=== PATIENT | female | born 1975 | race Caucasian/White ===

== ENCOUNTER 2017-07-22 18:43 | Emergency (ER) | payer OTHER ==
[~2017-07-22] VITALS: Ht 160 cm; Wt 108.9 kg
[2017-07-22] MEDS ORDERED: IV NORMAL SALINE 1,000ML 1,000 ML IV ONE (19:00)
--- NOTE | 2017-07-22 19:17 | RAD ---
CT HEAD WO CONTRAST Clinical indications: SEIZURE TODAY COMPARISON: None available. Technique: Noncontrast axial cross sectional scanning of the head was performed. Findings: No acute intracranial hemorrhage or midline shift or mass-effect or hydrocephalus or extra-axial fluid collection is seen. No focal hypodense area or sulci effacement is seen to indicate an acute infarct or edema radiographically. No skull fracture or pneumocephalus is seen. No opacification of the mastoid sinuses or the paranasal sinuses is seen. The maxillary sinuses are not seen in this study. Impression: No acute intracranial abnormality is seen. PQRS compliance Statement One or more of the following individualized dose reduction techniques were utilized for this study: 1. Automated exposure control 2. Adjustment of the mA and/or kV according to patient size 3. Use of iterative reconstruction technique Electronically signed by: Mukund Cuadra MD (07/22/2017 7:14 PM) [facility] [facility]
[2017-07-22 19:38] LABS: BASO % 1 % (0-3); EOS # 0.1 x10^3/uL (0.0-0.7); EOS % 2 % (0-3); HEMATOCRIT 41.2 % (36.0-47.0); HEMOGLOBIN 14.5 g/dL (12.0-15.5); LYMPH % 37 % (24-48); MEAN CORPUSCULAR HEMOGLOBIN 33 pg (25-35); MEAN CORPUSCULAR HGB CONC 35 g/dL (31-37); MEAN CORPUSCULAR VOLUME 93 fL (79-100); MONO # 0.6 x10^3/uL (0.0-1.1); MONO % 11 % (0-9); NEUT # 2.7 x10^3uL (1.8-7.7); NEUT % 50 % (31-73); PLATELET COUNT 263 x10^3/uL (140-400); RED BLOOD COUNT 4.45 x10^6/uL (3.50-5.40); RED CELL DISTRIBUTION WIDTH 12.6 % (11.5-14.5); WHITE BLOOD COUNT 5.4 x10^3/uL (4.0-11.0)
--- NOTE | 2017-07-22 19:40 | EKG ---
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
--- NOTE | 2017-07-22 19:43 | ED.ADGEN ---
Past History Past Medical History: Seizure, Other Alcohol Use: None Drug Use: Cocaine Adult General HPI HPI Patient is a 41-year-old woman, history of seizure disorder, hypothyroidism, who is on multiple antiepileptic medications, who presents to the emergency department from the correctional facility with report of 2 seizures, and concern for "stopping breathing". Patient didn't require any interventions per staff present with patient. Patient is now awake, alert and oriented 3, is complaining of a headache and some generalized fatigue. No trauma reported, patient was lying down both episodes occurred. Denies any focal weakness, numbness or tingling, any vision changes. 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 She states that when she was transferred to the current correctional facility, she was taken off of her medications, and it took some time for her primary care provider to be able to place her back on her typical medications, she states that she has been taking her full regimen for the past several days but there was a disruption as stated. She denies any ingestions, any drugs, any injuries, any fevers, chills, or other preceding symptoms. She states that she typically has seizures about once every month or 2 months, which is improved from her previous more frequent episodes due to her current medication regimen, she states she has not been receiving medications and the exact times amended by her primary care provider. Review of Systems Review of Systems Constitutional: Denies fever or chills [] Eyes: Denies change in visual acuity, redness, or eye pain [] HENT: Denies nasal congestion or sore throat [] Respiratory: Denies cough or shortness of breath [] Cardiovascular: No additional information not addressed in HPI [] GI: Denies abdominal pain, nausea, vomiting, bloody stools or diarrhea [] : Denies dysuria or hematuria [] Musculoskeletal: Denies back pain or joint pain [] Integument: Denies rash or skin lesions [] Neurologic: Denies headache, focal weakness or sensory changes [] Endocrine: Denies polyuria or polydipsia [] Current Medications Current Medications Current Medications Medications (Trade) Dose Ordered Sig/Carol Start Time Stop Time Status Last Admin Dose Admin Fosphenytoin Sodium 1000 mg/ Sodium Chloride 70 ml @ 280 mls/hr 1X ONCE 07/22/17 21:30 07/22/17 21:44 DC 07/22/17 21:30 280 MLS/HR Ibuprofen (Motrin) 800 mg STK-MED ONCE 07/22/17 22:54 07/22/17 22:55 DC Sodium Chloride 1,000 ml @ 1,000 mls/hr 1X ONCE 07/22/17 19:00 07/22/17 20:00 DC 07/22/17 19:00 1,000 MLS/HR Allergies Allergies Allergies Coded Allergies Type Severity Reaction Last Updated Verified Penicillins Allergy Mild 07/22/17 Yes morphine Allergy Mild Unknown 07/22/17 Yes Physical Exam Physical Exam Constitutional: Well developed, well nourished, no acute distress, non-toxic appearance. [] HENT: Normocephalic, atraumatic, bilateral external ears normal, oropharynx moist, no oral exudates, nose normal. [] Eyes: PERRLA, EOMI, conjunctiva normal, no discharge. [] Neck: Normal range of motion, no tenderness, supple, no stridor. [] Cardiovascular:Heart rate regular rhythm, no murmur , S1, S2, no rubs or gallops.[] Lungs & Thorax: Bilateral breath sounds clear to auscultation, no wheezing, rhonchi, rales. No chest wall crepitus or tenderness. [] Abdomen: Bowel sounds normal, soft, no tenderness, no masses, no pulsatile masses. [] Skin: Warm, dry, no erythema, no rash. [] Back: No tenderness, no CVA tenderness. [] Extremities: Patient with tenderness all patient in a smaller swelling noted throughout the distal and base of the left third digit, patient does have cardinal motions intact, with full range of motion with discomfort. No cyanosis , no clubbing, ROM intact, no edema. [] Neurologic: Alert and oriented X 3, normal motor function, normal sensory function, no focal deficits noted. [] Psychologic: Affect normal, judgement normal, mood normal. [] Current Patient Data Vital Signs Vital Signs Date Time Temp Pulse Resp B/P (MAP) Pulse Ox O2 Delivery O2 Flow Rate FiO2 07/22/17 22:49 67 22 130/74 (92) 99 07/22/17 18:54 98.0 Lab Results Laboratory Tests Test 07/22/17 19:10 07/22/17 19:15 Urine Opiates Screen Neg (NEG) Urine Methadone Screen Neg (NEG) Urine Barbiturates Neg (NEG) Urine Phencyclidine Screen Neg (NEG) Urine Amphetamine/Methamphetamine Neg (NEG) Urine Benzodiazepines Screen Neg (NEG) Urine Cocaine Screen Neg (NEG) Urine Cannabinoids Screen Neg (NEG) Urine Ethyl Alcohol Neg (NEG) White Blood Count 5.4 x10^3/uL (4.0-11.0) Red Blood Count 4.45 x10^6/uL (3.50-5.40) Hemoglobin 14.5 g/dL (12.0-15.5) Hematocrit 41.2 % (36.0-47.0) Mean Corpuscular Volume 93 fL (79-100) Mean Corpuscular Hemoglobin 33 pg (25-35) Mean Corpuscular Hemoglobin Concent 35 g/dL (31-37) Red Cell Distribution Width 12.6 % (11.5-14.5) Platelet Count 263 x10^3/uL (140-400) Neutrophils (%) (Auto) 50 % (31-73) Lymphocytes (%) (Auto) 37 % (24-48) Monocytes (%) (Auto) 11 % (0-9) H Eosinophils (%) (Auto) 2 % (0-3) Basophils (%) (Auto) 1 % (0-3) Neutrophils # (Auto) 2.7 x10^3uL (1.8-7.7) Lymphocytes # (Auto) 2.0 x10^3/uL (1.0-4.8) Monocytes # (Auto) 0.6 x10^3/uL (0.0-1.1) Eosinophils # (Auto) 0.1 x10^3/uL (0.0-0.7) Basophils # (Auto) 0.0 x10^3/uL (0.0-0.2) Sodium Level 140 mmol/L (136-145) Potassium Level 3.7 mmol/L (3.5-5.1) Chloride Level 105 mmol/L (98-107) Carbon Dioxide Level 29 mmol/L (21-32) Anion Gap 6 (6-14) Blood Urea Nitrogen 9 mg/dL (7-20) Creatinine 0.7 mg/dL (0.6-1.0) Estimated GFR (Cockcroft-Gault) 92.7 BUN/Creatinine Ratio 13 (6-20) Glucose Level 90 mg/dL (70-99) Lactic Acid Level 1.1 mmol/L (0.4-2.0) Calcium Level 8.9 mg/dL (8.5-10.1) Magnesium Level 2.0 mg/dL (1.8-2.4) Total Bilirubin 0.2 mg/dL (0.2-1.0) Aspartate Amino Transferase (AST) 17 U/L (15-37) Alanine Aminotransferase (ALT) 24 U/L (14-59) Alkaline Phosphatase 85 U/L (46-116) Troponin I Quantitative < 0.017 ng/mL (0-0.055) Total Protein 7.4 g/dL (6.4-8.2) Albumin 3.5 g/dL (3.4-5.0) Albumin/Globulin Ratio 0.9 (1.0-1.7) L Serum Test, Qualitative Negative (NEG) Phenytoin (Dilantin) Level 4.0 mcg/mL (10.0-20.0) L Phenytoin Last Dose Date 07/22/17 Phenytoin Last Dose Time 0900 EKG EKG EC: Sinus rhythm, heart rate 64 beats/minute, upright axis, QTC of 400, WI 150, QRS of 74, no ST elevations or depressions, no dense of acute ST abnormalities. As interpreted by me.[] Radiology/Procedures Radiology/Procedures [][address] [address] IMAGING REPORT Signed PATIENT: ALDO HERNANDEZ ACCOUNT: [id number] : 1975 LOCATION: ER AGE: 41 SEX: F EXAM STATUS: PRE ER ORD. PHYSICIAN: VISH ROBERTS DO REASON: SONY PROCEDURE: CT HEAD WO CONTRAST CT HEAD WO CONTRAST Clinical indications: SEIZURE TODAY COMPARISON: None available. Technique: Noncontrast axial cross sectional scanning of the head was performed. Findings: No acute intracranial hemorrhage or midline shift or mass-effect or hydrocephalus or extra-axial fluid collection is seen. No focal hypodense area or sulci effacement is seen to indicate an acute infarct or edema radiographically. No skull fracture or pneumocephalus is seen. No opacification of the mastoid sinuses or the paranasal sinuses is seen. The maxillary sinuses are not seen in this study. Impression: No acute intracranial abnormality is seen. PQRS compliance Statement One or more of the following individualized dose reduction techniques were utilized for this study: 1. Automated exposure control 2. Adjustment of the mA and/or kV according to patient size 3. Use of iterative reconstruction technique Electronically signed by: Edgardo Cuadra MD (07/22/2017 7:14 PM) [facility] DICTATED AND SIGNED BY: EDGARDO CUADRA MD DATE: 07/22/171910 CC: VISH ROBERTS DO ~ Impressions: Chest x-ray: One view: Normal cardiopulmonary silhouette, no infiltrates, no effusions, no pneumothorax, no soft tissue or bony abnormalities identified. As interpreted by me. [place] [id number] IMAGING REPORT Signed PATIENT: ALDO HERNANDEZ ACCOUNT: [id number] : 1975 LOCATION: ER AGE: 41 SEX: F EXAM STATUS: PRE ER ORD. PHYSICIAN: VISH ROBERTS DO REASON: SZ PROCEDURE: CT HEAD WO CONTRAST CT HEAD WO CONTRAST Clinical indications: SEIZURE TODAY COMPARISON: None available. Technique: Noncontrast axial cross sectional scanning of the head was performed. Findings: No acute intracranial hemorrhage or midline shift or mass-effect or hydrocephalus or extra-axial fluid collection is seen. No focal hypodense area or sulci effacement is seen to indicate an acute infarct or edema radiographically. No skull fracture or pneumocephalus is seen. No opacification of the mastoid sinuses or the paranasal sinuses is seen. The maxillary sinuses are not seen in this study. Impression: No acute intracranial abnormality is seen. PQRS compliance Statement One or more of the following individualized dose reduction techniques were utilized for this study: 1. Automated exposure control 2. Adjustment of the mA and/or kV according to patient size 3. Use of iterative reconstruction technique Electronically signed by: Edgardo Cuadra MD (07/22/2017 7:14 PM) [facility] [place] DICTATED AND SIGNED BY: EDGARDO CUADRA MD DATE: 07/22/171910 CC: ARMANDOVISH DO ~ Ears: Three-view: Left: Patient with a possible small avulsion fracture on the medial aspect of the base of the third phalanx. No other abnormalities identified. As interpreted by me. Course & Med Decision Making Course & Med Decision Making Pertinent Labs and Imaging studies reviewed. (See chart for details) Patient received CT of the head did not reveal any concerning findings, x-ray of the fingers and chest. Fingers revealed a possible small chip fracture at the base of the third phalanx, patient was placed in a finger splint. No other concerning imaging abnormalities identified, patient was noted to have a subtherapeutic Dilantin level of 4.0. Patient was observed in the emergency department for 3 hours, lactic was normal, other electrolytes and laboratory studies within normal limits. She remained stable, comfortable, without requiring additional intervention. I did discuss findings as above, patient's clinical course, and report of inadvertent medication noncompliance due to patient's incarcerated state with Dr. Kothari of neurology. As patient reports that she is now back on her typical medication regimen, and patient is noted to have a subtherapeutic Dilantin as stated, he recommends loading the patient with Dilantin, continuing her on the medication regimen was previously successful, with plan for the patient be discharged and follow-up with her neurologist. He recommends administering a 10 mg/kg loading dose of Dilantin in the ED IV. I did discuss this with the patient and with the correctional officers present at bedside. Patient is agreeable this plan, as stated she continues to be asymptomatic and comfortable with vital signs within normal limits in the emergency department. Patient was administered Dilantin IV without complication. She was ambulating without difficulty, with vital signs within normal limits, denying all complaints. I did discuss importance of follow -up with her neurologist, and continuation of medications with patient and correctional facility staff. Patient also given contact information for orthopedics for evaluation of her finger. Patient and correctional officers were given clear and detailed return instructions and precautions. Patient and officers voiced understanding and agreement with plan, patient was discharged home with plan to follow-up with her neurologist in the next few days, to return to the emergency department for any concerning symptoms as discussed, and to continue medications as directed. Final Impression Final Impression [] Problems: Dragon Disclaimer Dragon Disclaimer This electronic medical record was generated, in whole or in part, using a voice recognition dictation system. Departure: Impression: Primary Impression: Proximal phalanx fracture of finger Additional Impressions: Seizure Subtherapeutic serum dilantin level Disposition: 01 HOME, SELF-CARE Condition: IMPROVED VISH ROBERTS DO Jul 22, 2017 19:43
[2017-07-22 19:45] LABS: PREG TEST PT QUAL NEGATIVE (NEG)
[2017-07-22 19:46] LABS: BARBITURATES NEG (NEG); BENZODIAZEPINES NEG (NEG); CANNABINOIDS NEG (NEG); COCAINE NEG (NEG); METHADONE NEG (NEG); OPIATES NEG (NEG); PHENCYCLIDINE NEG (NEG)
[2017-07-22 19:47] LABS: AMPHETAMINE/METHAMPHETAMINE NEG (NEG)
[2017-07-22 19:51] LABS: ALBUMIN 3.5 g/dL (3.4-5.0); ALBUMIN/GLOBULIN RATIO 0.9 (1.0-1.7); CALCIUM 8.9 mg/dL (8.5-10.1); CREATININE 0.7 mg/dL (0.6-1.0); GFR 92.7; POTASSIUM 3.7 mmol/L (3.5-5.1); TOTAL BILIRUBIN 0.2 mg/dL (0.2-1.0); TOTAL PROTEIN 7.4 g/dL (6.4-8.2)
[2017-07-22] MEDS ORDERED: FOSPHENYTOIN 1,000 MG in IV NORMAL SALINE 50ML 50 ML IV ONE (21:30)
[2017-07-22] MEDS ORDERED: IBUPROFEN 400 MG TABLET. PO ONE (22:45)
[2017-07-22] MEDS ORDERED: IBUPROFEN 800 MG TABLET. PO ONE ×2 (22:45→22:54)
[2017-07-22 22:49] VITALS: BP 130/74
--- NOTE | 2017-07-23 08:04 | RAD ---
Indication seizure. Protocol study. Suspect aspiration. A single view chest was obtained. No prior imaging of the chest is available. The heart, pulmonary vessels and mediastinum appear normal. The lungs are clear of acute infiltrates. Significant pleural fluid is not seen and there is no pneumothorax. There are occasional calcified granulomas. IMPRESSION: No acute finding in the chest
--- NOTE | 2017-07-23 08:40 | RAD ---
Left middle finger, 3 views, 07/22/2017: History: Pain, injury There is a small calcific density along the lateral aspect of the third MCP joint. It demonstrates sclerotic margins suggesting that this is an old nonunited fracture fragment. No definite acute fracture or dislocation is identified. IMPRESSION: Small cortical fracture along the proximal end of the proximal phalanx, most likely old.
== END 2017-07-22 23:03 | disposition home or self-care (01) ==
LOC: EEVIPCON 18:43 → ER 18:43
DX: G40.909 Epilepsy, unspecified, not intractable, without status epilepticus (principal); S62.613A Displaced fracture of proximal phalanx of left middle finger, initial encounter for closed fracture; R79.1 Abnormal coagulation profile; E03.9 Hypothyroidism, unspecified; Z88.0 Allergy status to penicillin; Z88.5 Allergy status to narcotic agent; X58.XXXA Exposure to other specified factors, initial encounter; Y93.89 Activity, other specified; Y99.8 Other external cause status; Y92.89 Other specified places as the place of occurrence of the external cause
CPT/HCPCS: 29130; 36415; 70450; 71010; 73140; 80053; 80175; 80185; 80307; 83605; 83735; 84484; 84703; 85025; 93005; 96361; 96365; 99285; Q2009; G0479; J7030

== ENCOUNTER 2017-08-06 12:15 | Emergency (ER) | payer OTHER ==
[~2017-08-06] VITALS: Ht 160 cm; Wt 108.9 kg
[2017-08-06 12:20] VITALS: BP 124/64
--- NOTE | 2017-08-06 13:16 | RAD ---
CT head without contrast 08/06/2017 Clinical indication: Worsening headache. Comparison: CT head 07/22/2017 Technique: Multiple CT images of the head were obtained without contrast according to standard protocol. RS Compliance Statement: One or more of the following individualized dose reduction techniques were utilized for this examination: 1. Automated exposure control 2. Adjustment of the mA and/or kV according to patient size 3. Use of iterative reconstruction technique Findings: No acute intracranial hemorrhage or extra-axial fluid collection. The ventricles and subarachnoid spaces are normal in size and configuration for age. No midline shift. The basal cisterns are patent. The jordan-white matter interfaces are maintained. Impression: No acute intracranial hemorrhage. These results were discussed with Dr. Eldridge by telephone at 1:15 PM 08/06/[address] Bryon Maldonado.
[2017-08-06] MEDS ORDERED: LORazepam 2 MG/ML VIAL IV ONE (13:30)
[2017-08-06] MEDS ORDERED: KETOROLAC 30 MG/ML VIAL. IV ONE (13:30)
[2017-08-06 13:31] LABS: BASO % 0 % (0-3); EOS # 0.1 x10^3/uL (0.0-0.7); EOS % 3 % (0-3); HEMATOCRIT 39.9 % (36.0-47.0); HEMOGLOBIN 13.7 g/dL (12.0-15.5); LYMPH # 1.7 x10^3/uL (1.0-4.8); LYMPH % 37 % (24-48); MEAN CORPUSCULAR HEMOGLOBIN 32 pg (25-35); MEAN CORPUSCULAR HGB CONC 34 g/dL (31-37); MEAN CORPUSCULAR VOLUME 93 fL (79-100); MONO # 0.4 x10^3/uL (0.0-1.1); MONO % 9 % (0-9); NEUT # 2.4 x10^3uL (1.8-7.7); NEUT % 52 % (31-73); PLATELET COUNT 256 x10^3/uL (140-400); RED BLOOD COUNT 4.29 x10^6/uL (3.50-5.40); RED CELL DISTRIBUTION WIDTH 12.7 % (11.5-14.5); WHITE BLOOD COUNT 4.6 x10^3/uL (4.0-11.0)
--- NOTE | 2017-08-06 13:36 | RAD ---
CT cervical spine without contrast 08/06/2017 Comparison: None. Clinical indication: Neck pain. Technique: Multiple CT images of the cervical spine were obtained without contrast according to standard protocol PQRS Compliance Statement: One or more of the following individualized dose reduction techniques were utilized for this examination: 1. Automated exposure control 2. Adjustment of the mA and/or kV according to patient size 3. Use of iterative reconstruction technique Findings: No acute cervical spine fracture or traumatic malalignment. There is mild straightening of the cervical spine which may be positional or due to muscle spasm. Atlantoaxial articulation is maintained. Vertebral body heights are maintained. The paraspinal soft tissues are unremarkable. Impression: No acute cervical spine fracture or subluxation.
[2017-08-06 13:44] LABS: ALBUMIN 3.3 g/dL (3.4-5.0); ALBUMIN/GLOBULIN RATIO 0.9 (1.0-1.7); CREATININE 0.7 mg/dL (0.6-1.0); GFR 92.2; MAGNESIUM 1.9 mg/dL (1.8-2.4); TOTAL BILIRUBIN 0.1 mg/dL (0.2-1.0)
--- NOTE | 2017-08-06 13:57 | PHYS DOC ---
Past History Past Medical History: Seizure Past Surgical History: No Surgical History Alcohol Use: Rarely Drug Use: None Adult General Chief Complaint Chief Complaint: SEIZURE HPI HPI Patient is a 42 year old F who presents after having a seizure that lasted approximately 30 seconds. Steff does have a seizure disorder and is having more frequent recurrent episodes of seizures. She has been taking her seizure medication. She states that following the seizure she had more headache and neck pain. She states that she "does not feel normal". She denies any other associated symptoms. She denies any exacerbating or alleviating factors. Review of Systems Review of Systems Constitutional: Denies fever or chills [] Eyes: Denies change in visual acuity, redness, or eye pain [] HENT: Denies nasal congestion or sore throat [] Respiratory: Denies cough or shortness of breath [] Cardiovascular: No additional information not addressed in HPI [] GI: Denies abdominal pain, nausea, vomiting, bloody stools or diarrhea [] : Denies dysuria or hematuria [] Musculoskeletal: Denies joint pain [] Integument: Denies rash or skin lesions [] Neurologic: Denies focal weakness or sensory changes [] Endocrine: Denies polyuria or polydipsia [] All other systems were reviewed and found to be within normal limits, except as documented in this note. Family History Family History Noncontributory Current Medications Current Medications Medications reviewed Current Medications Medications (Trade) Dose Ordered Sig/[facility] Start Time Stop Time Status Last Admin Dose Admin Ketorolac Tromethamine (Toradol) 30 mg 1X ONCE 08/06/17 13:30 08/06/17 13:31 DC 08/06/17 13:30 30 MG Lorazepam (Ativan) 2 mg 1X ONCE 08/06/17 13:30 08/06/17 13:31 DC 08/06/17 13:30 2 MG Allergies Allergies Allergies Coded Allergies Type Severity Reaction Last Updated Verified Penicillins Allergy Mild 07/22/17 Yes morphine Allergy Mild Unknown 07/22/17 Yes Physical Exam Physical Exam Constitutional: Well developed, well nourished, non-toxic appearance. [] Moderate distress HENT: Normocephalic, atraumatic, bilateral external ears normal, oropharynx moist, no oral exudates, nose normal. [] Eyes: PERRLA, EOMI, conjunctiva normal, no discharge. [] Neck: Normal range of motion, no tenderness, supple, no stridor. [] Cardiovascular:Heart rate regular rhythm Lungs & Thorax: Bilateral breath sounds clear to auscultation [] Abdomen: Bowel sounds normal, soft, no tenderness, no masses, no pulsatile masses. [] Skin: Warm, dry, no erythema, no rash. [] Back: No tenderness, no CVA tenderness. [] Extremities: No tenderness, no cyanosis, no clubbing, ROM intact, no edema. [] Neurologic: Alert and oriented X 3, normal motor function, normal sensory function, no focal deficits noted. [] Psychologic: Affect normal, judgement normal, mood normal. [] Current Patient Data Vital Signs Vital Signs Date Time Temp Pulse Resp B/P (MAP) Pulse Ox O2 Delivery O2 Flow Rate FiO2 08/06/17 12:20 98.3 75 20 100 Room Air Lab Results Laboratory Tests Test 08/06/17 13:18 White Blood Count 4.6 x10^3/uL (4.0-11.0) Red Blood Count 4.29 x10^6/uL (3.50-5.40) Hemoglobin 13.7 g/dL (12.0-15.5) Hematocrit 39.9 % (36.0-47.0) Mean Corpuscular Volume 93 fL (79-100) Mean Corpuscular Hemoglobin 32 pg (25-35) Mean Corpuscular Hemoglobin Concent 34 g/dL (31-37) Red Cell Distribution Width 12.7 % (11.5-14.5) Platelet Count 256 x10^3/uL (140-400) Neutrophils (%) (Auto) 52 % (31-73) Lymphocytes (%) (Auto) 37 % (24-48) Monocytes (%) (Auto) 9 % (0-9) Eosinophils (%) (Auto) 3 % (0-3) Basophils (%) (Auto) 0 % (0-3) Neutrophils # (Auto) 2.4 x10^3uL (1.8-7.7) Lymphocytes # (Auto) 1.7 x10^3/uL (1.0-4.8) Monocytes # (Auto) 0.4 x10^3/uL (0.0-1.1) Eosinophils # (Auto) 0.1 x10^3/uL (0.0-0.7) Basophils # (Auto) 0.0 x10^3/uL (0.0-0.2) Sodium Level 140 mmol/L (136-145) Potassium Level 4.0 mmol/L (3.5-5.1) Chloride Level 106 mmol/L (98-107) Carbon Dioxide Level 27 mmol/L (21-32) Anion Gap 7 (6-14) Blood Urea Nitrogen 6 mg/dL (7-20) L Creatinine 0.7 mg/dL (0.6-1.0) Estimated GFR (Cockcroft-Gault) 92.2 BUN/Creatinine Ratio 9 (6-20) Glucose Level 89 mg/dL (70-99) Calcium Level 9.0 mg/dL (8.5-10.1) Magnesium Level 1.9 mg/dL (1.8-2.4) Total Bilirubin 0.1 mg/dL (0.2-1.0) L Aspartate Amino Transferase (AST) 15 U/L (15-37) Alanine Aminotransferase (ALT) 22 U/L (14-59) Alkaline Phosphatase 84 U/L (46-116) Total Protein 7.0 g/dL (6.4-8.2) Albumin 3.3 g/dL (3.4-5.0) L Albumin/Globulin Ratio 0.9 (1.0-1.7) L EKG EKG [] Radiology/Procedures Radiology/Procedures CT head and C-spine Impressions: No acute disease noted per radiology report Course & Med Decision Making Course & Med Decision Making Pertinent Labs and Imaging studies reviewed. (See chart for details) [] Dragon Disclaimer Dragon Disclaimer This electronic medical record was generated, in whole or in part, using a voice recognition dictation system. Departure Departure: Impression: Primary Impression: Seizure Disposition: 01 HOME, SELF-CARE Condition: STABLE Referrals: [facility], [employer]GER (PCP) Patient Instructions: Seizure, Adult Additional Instructions: Steff was seen in the emergency department after a seizure. No emergency medical condition was found on history or physical exam. She did have normal labs and imaging. She was given medication to treat her headache. She was encouraged to follow up with her neurologist as soon as possible for further management of her recurrent seizures. MAYA KOWALSKI MD Aug 06, 2017 13:57
[2017-08-07] MEDS ORDERED: DIVA500T4 PO (00:32)
[2017-08-07] MEDS ORDERED: PHEN100C PO (00:32)
[2017-08-07] MEDS ORDERED: LEVE100020 PO (00:32)
[2017-08-07] MEDS ORDERED: LAMO25TA5 PO (00:32)
== END 2017-08-06 14:02 | disposition home or self-care (01) ==
LOC: ER 12:15
DX: G40.909 Epilepsy, unspecified, not intractable, without status epilepticus (principal); Z88.0 Allergy status to penicillin; Z88.5 Allergy status to narcotic agent
CPT/HCPCS: 36415; 70450; 72125; 80053; 83735; 85025; 96374; 96375; 99285; J1885; J2060

== ENCOUNTER 2017-08-06 21:37 | Emergency (ER) | payer OTHER ==
[~2017-08-06] VITALS: Ht 160 cm; Wt 108.9 kg
[2017-08-07 00:03] LABS: BACTERIA,URINE FEW /HPF (0-FEW); BILIRUBIN,URINE NEG (NEG); CLARITY,URINE CLEAR; COLOR,URINE YELLOW; GLUCOSE,URINE NEG (NEG); NITRITE,URINE NEG (NEG); RBC,URINE 0 /HPF (0-2); SQUAMOUS EPITHELIAL CELL,UR MANY /LPF; UROBILINOGEN,URINE 0.2 mg/dL (0.2 mg/dL); WBC,URINE OCC /HPF (0-4)
[2017-08-07 00:08] LABS: ALBUMIN 3.4 g/dL (3.4-5.0); ALBUMIN/GLOBULIN RATIO 0.9 (1.0-1.7); ALK PHOS 87 U/L (46-116); ALT (SGPT) 25 U/L (14-59); ANION GAP 8 (6-14); AST (SGOT) 14 U/L (15-37); BLOOD UREA NITROGEN 7 mg/dL (7-20); BUN/CREATININE RATIO 10 (6-20); CALCIUM 8.8 mg/dL (8.5-10.1); CARBON DIOXIDE 28 mmol/L (21-32); CHLORIDE 105 mmol/L (98-107); CREATININE 0.7 mg/dL (0.6-1.0); GFR 92.2; GLUCOSE 85 mg/dL (70-99); PHENY 6.2 mcg/mL (10.0-20.0); POTASSIUM 3.7 mmol/L (3.5-5.1); SODIUM 141 mmol/L (136-145); TOTAL BILIRUBIN 0.1 mg/dL (0.2-1.0); TOTAL PROTEIN 7.1 g/dL (6.4-8.2); VAL ACID 36 mcg/mL (50-100)
[2017-08-07] MEDS ORDERED: VALPROIC ACID 250 MG CAPSULE. PO ONE (00:30)
[2017-08-07] MEDS ORDERED: PHENYTOIN SODIUM EXTENDED 100 MG CAPSULE PO ONE (00:30)
[2017-08-07] MEDS ORDERED: DIVA500T4 PO (00:32)
[2017-08-07] MEDS ORDERED: LEVE100020 PO (00:32)
[2017-08-07] MEDS ORDERED: LAMO25TA5 PO (00:32)
[2017-08-07] MEDS ORDERED: PHEN100C PO (00:32)
--- NOTE | 2017-08-07 00:33 | PHYS DOC ---
Past History Past Medical History: Bipolar, Depression Past Surgical History: No Surgical History Alcohol Use: None Drug Use: None Adult General Chief Complaint Chief Complaint: SEIZURE HPI HPI Patient is a [age] year old [sex] who presents with [] Review of Systems Review of Systems Constitutional: Denies fever or chills [] Eyes: Denies change in visual acuity, redness, or eye pain [] HENT: Denies nasal congestion or sore throat [] Respiratory: Denies cough or shortness of breath [] Cardiovascular: No additional information not addressed in HPI [] GI: Denies abdominal pain, nausea, vomiting, bloody stools or diarrhea [] : Denies dysuria or hematuria [] Musculoskeletal: Denies back pain or joint pain [] Integument: Denies rash or skin lesions [] Neurologic: Denies headache, focal weakness or sensory changes [] Endocrine: Denies polyuria or polydipsia [] All other systems were reviewed and found to be within normal limits, except as documented in this note. Current Medications Current Medications Current Medications Medications (Trade) Dose Ordered Sig/Carol Start Time Stop Time Status Last Admin Dose Admin Phenytoin Sodium (Dilantin) 500 mg 1X ONCE 08/07/17 00:30 08/07/17 00:31 Valproic Acid (Depakene) 500 mg 1X ONCE 08/07/17 00:30 08/07/17 00:31 Allergies Allergies Allergies Coded Allergies Type Severity Reaction Last Updated Verified Penicillins Allergy Mild 07/22/17 Yes morphine Allergy Mild Unknown 07/22/17 Yes Physical Exam Physical Exam Constitutional: Well developed, well nourished, no acute distress, non-toxic appearance. [] HENT: Normocephalic, atraumatic, bilateral external ears normal, oropharynx moist, no oral exudates, nose normal. [] Eyes: PERRLA, EOMI, conjunctiva normal, no discharge. [] Neck: Normal range of motion, no tenderness, supple, no stridor. [] Cardiovascular:Heart rate regular rhythm, no murmur [] Lungs & Thorax: Bilateral breath sounds clear to auscultation [] Abdomen: Bowel sounds normal, soft, no tenderness, no masses, no pulsatile masses. [] Skin: Warm, dry, no erythema, no rash. [] Back: No tenderness, no CVA tenderness. [] Extremities: No tenderness, no cyanosis, no clubbing, ROM intact, no edema. [] Neurologic: Alert and oriented X 3, normal motor function, normal sensory function, no focal deficits noted. [] Psychologic: Affect normal, judgement normal, mood normal. [] Current Patient Data Vital Signs Vital Signs Date Time Temp Pulse Resp B/P (MAP) Pulse Ox O2 Delivery O2 Flow Rate FiO2 08/06/17 21:37 98.2 82 14 98 Room Air Lab Results Laboratory Tests Test 08/06/17 23:18 Urine Collection Type Unknown Urine Color Yellow Urine Clarity Clear Urine pH 5.5 Urine Specific [place] 1.025 Urine Protein Trace (NEG-TRACE) Urine Glucose (UA) Neg mg/dL (NEG) Urine Ketones (Stick) 15 mg/dL (NEG) Urine Blood Neg (NEG) Urine Nitrite Neg (NEG) Urine Bilirubin Neg (NEG) Urine Urobilinogen Dipstick 0.2 mg/dL (0.2 mg/dL) Urine Leukocyte Esterase Neg (NEG) Urine RBC 0 /HPF (0-2) Urine WBC Occ /HPF (0-4) Urine Squamous Epithelial Cells Many /LPF Urine Bacteria Few /HPF (0-FEW) Sodium Level 141 mmol/L (136-145) Potassium Level 3.7 mmol/L (3.5-5.1) Chloride Level 105 mmol/L (98-107) Carbon Dioxide Level 28 mmol/L (21-32) Anion Gap 8 (6-14) Blood Urea Nitrogen 7 mg/dL (7-20) Creatinine 0.7 mg/dL (0.6-1.0) Estimated GFR (Cockcroft-Gault) 92.2 BUN/Creatinine Ratio 10 (6-20) Glucose Level 85 mg/dL (70-99) Calcium Level 8.8 mg/dL (8.5-10.1) Total Bilirubin 0.1 mg/dL (0.2-1.0) L Aspartate Amino Transferase (AST) 14 U/L (15-37) L Alanine Aminotransferase (ALT) 25 U/L (14-59) Alkaline Phosphatase 87 U/L (46-116) Total Protein 7.1 g/dL (6.4-8.2) Albumin 3.4 g/dL (3.4-5.0) Albumin/Globulin Ratio 0.9 (1.0-1.7) L Phenytoin (Dilantin) Level 6.2 mcg/mL (10.0-20.0) L Phenytoin Last Dose Date Unknown Phenytoin Last Dose Time Unknown Valproic Acid Level 36 mcg/mL (50-100) L Valproic Acid Last Dose Date Unknown Valproic Acid Last Dose Time Unknown EKG EKG [] Radiology/Procedures Radiology/Procedures [] Course & Med Decision Making Course & Med Decision Making Pertinent Labs and Imaging studies reviewed. (See chart for details) [] Dragon Disclaimer Dragon Disclaimer This electronic medical record was generated, in whole or in part, using a voice recognition dictation system. Departure Departure: Impression: Primary Impression: Subtherapeutic serum dilantin level Additional Impression: Seizure Disposition: HOME, SELF-CARE Condition: IMPROVED Referrals: LUIZ PLAZA MSN, COMPANY TANKER TRUCK DRIVER (PCP) Scripts Lamotrigine (LAMICTAL) 25 Mg Tablet 1 TAB PO BID for 30 Days, #60 TAB 1 Refill Prov: ZAIRA CRUZ MD 08/07/17 Divalproex Sodium (DEPAKOTE ER) 500 Mg Tab.er.24h 1 TAB PO QHS for 30 Days, #30 TAB 0 Refills Prov: ZAIRA CRUZ MD 08/07/17 Levetiracetam (KEPPRA) 1,000 Mg Tablet 1 TAB PO BID for 30 Days, #60 TAB 5 Refills Prov: ZAIRA CRUZ MD 08/07/17 Phenytoin Sodium Extended (DILANTIN) 100 Mg Capsule 300 MG PO HS for 30 Days, #90 CAP Prov: ZAIRA CRUZ MD 08/07/17 Problem Qualifiers ZAIRA CRUZ MD Aug 07, 2017 00:33
[2017-08-07 01:11] VITALS: BP 118/64
== END 2017-08-07 01:11 | disposition home or self-care (01) ==
LOC: ER 21:37
DX: R56.9 Unspecified convulsions (principal); R79.1 Abnormal coagulation profile; F31.9 Bipolar disorder, unspecified; Z88.0 Allergy status to penicillin; Z88.5 Allergy status to narcotic agent
CPT/HCPCS: 36415; 80053; 80164; 80185; 81001; 99284

== ENCOUNTER 2017-08-18 20:36 | Emergency (ER) | payer OTHER ==
[~2017-08-18] VITALS: Ht 160 cm; Wt 108.9 kg
[~2017-08-18 20:36] MED LIST: DIVA500T4 PO; LAMO25TA5 PO; LEVE100020 PO; PHEN100C PO
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
[2017-08-18] MEDS ORDERED: LORazepam 1 MG TABLET PO ONE (21:30)
[2017-08-18] MEDS ORDERED: IV RINGERS SOLUTION,LACTATED 1,000 ML IV ONE (21:30)
[2017-08-18 22:55] LABS: BARBITURATES NEG (NEG); BENZODIAZEPINES NEG (NEG); CANNABINOIDS NEG (NEG); COCAINE NEG (NEG); METHADONE NEG (NEG); OPIATES NEG (NEG); PHENCYCLIDINE NEG (NEG)
[2017-08-18 22:57] LABS: AMPHETAMINE/METHAMPHETAMINE NEG (NEG)
[2017-08-18 23:03] LABS: BACTERIA,URINE FEW /HPF (0-FEW); BILIRUBIN,URINE NEG (NEG); CLARITY,URINE CLEAR; GLUCOSE,URINE NEG (NEG); NITRITE,URINE NEG (NEG); RBC,URINE OCC /HPF (0-2); SQUAMOUS EPITHELIAL CELL,UR FEW /LPF; UROBILINOGEN,URINE 0.2 mg/dL (0.2 mg/dL)
[2017-08-18 23:04] LABS: COLOR,URINE YELLOW
[2017-08-19 00:05] LABS: BASO % 0 % (0-3); EOS # 0.2 x10^3/uL (0.0-0.7); EOS % 3 % (0-3); HEMATOCRIT 36.9 % (36.0-47.0); HEMOGLOBIN 12.8 g/dL (12.0-15.5); LYMPH # 2.5 x10^3/uL (1.0-4.8); LYMPH % 36 % (24-48); MEAN CORPUSCULAR HEMOGLOBIN 32 pg (25-35); MEAN CORPUSCULAR HGB CONC 35 g/dL (31-37); MEAN CORPUSCULAR VOLUME 93 fL (79-100); MONO # 0.6 x10^3/uL (0.0-1.1); MONO % 9 % (0-9); NEUT # 3.6 x10^3uL (1.8-7.7); NEUT % 52 % (31-73); PLATELET COUNT 269 x10^3/uL (140-400); RED BLOOD COUNT 3.95 x10^6/uL (3.50-5.40); RED CELL DISTRIBUTION WIDTH 12.9 % (11.5-14.5)
[2017-08-19] MEDS ORDERED: SMZ/TMP 800/160MG TABLET. PO ONE (00:15)
[2017-08-19 00:17] LABS: PREG TEST PT QUAL NEGATIVE (NEG)
--- NOTE | 2017-08-19 00:27 | EKG ---
[address] [address] Test Date: 2017-08-18 Test Time: 22:23:53 Pat Name: ALDO HERNANDEZ Department: Room: Gender: F Check Embosser: ROMIE : 1975 Requested By: BRYANT GELLER Order Number: [id number] Reading MD: Armaan Funez Measurements Intervals [place] Rate: 78 P: 52 AK: 148 QRS: 52 QRSD: 72 T: 39 QT: 376 QTc: 432 Interpretive Statements SINUS RHYTHM NORMAL ECG Electronically Signed On 08-25-2017 14:30:34 EXECUTIVE MANAGER by Armaan Funez
[2017-08-19 00:29] LABS: VAL ACID 8 mcg/mL (50-100)
[2017-08-19 00:31] LABS: ALBUMIN 3.1 g/dL (3.4-5.0); ALBUMIN/GLOBULIN RATIO 0.8 (1.0-1.7); ALK PHOS 82 U/L (46-116); ALT (SGPT) 52 U/L (14-59); ANION GAP 9 (6-14); AST (SGOT) 32 U/L (15-37); BLOOD UREA NITROGEN 14 mg/dL (7-20); BUN/CREATININE RATIO 20 (6-20); CALCIUM 8.6 mg/dL (8.5-10.1); CARBON DIOXIDE 26 mmol/L (21-32); CHLORIDE 107 mmol/L (98-107); CREATINE KINASE 34 U/L (26-192); CREATININE 0.7 mg/dL (0.6-1.0); GFR 92.2; GLUCOSE 100 mg/dL (70-99); LIPASE 156 U/L (73-393); MAGNESIUM 1.8 mg/dL (1.8-2.4); PHENY 3.5 mcg/mL (10.0-20.0); POTASSIUM 3.6 mmol/L (3.5-5.1); SODIUM 142 mmol/L (136-145); TOTAL BILIRUBIN 0.1 mg/dL (0.2-1.0); TOTAL PROTEIN 6.9 g/dL (6.4-8.2)
[2017-08-19 01:33] VITALS: BP 111/73
[2017-08-19] MEDS ORDERED: DIVA500T2 PO (01:59)
[2017-08-19] MEDS ORDERED: LEVE100020 PO (01:59)
[2017-08-19] MEDS ORDERED: PHEN100C PO (01:59)
[2017-08-19] MEDS ORDERED: SULF1TAB24 PO (02:01)
[2017-08-19] MEDS ORDERED: ONDANSETRON ODT 4 MG TAB.RAPDIS PO ONE (02:15)
[2017-08-19] MEDS ORDERED: PHENYTOIN SODIUM EXTENDED 100 MG CAPSULE PO ONE (02:15)
[2017-08-19] MEDS ORDERED: DIVALPROEX ER 500 MG TAB.ER.24H PO ONE (02:30)
== END 2017-08-19 02:34 | disposition home or self-care (01) ==
LOC: ER 20:36
DX: N39.0 Urinary tract infection, site not specified (principal); Z87.820 Personal history of traumatic brain injury; F31.9 Bipolar disorder, unspecified; R79.1 Abnormal coagulation profile; Z88.0 Allergy status to penicillin; Z88.5 Allergy status to narcotic agent
CPT/HCPCS: 36415; 80053; 80164; 80185; 80307; 81001; 81025; 82553; 83690; 83735; 83880; 84443; 84484; 84703; 85025; 85610; 85730; 87086; 93005; 96360; 96361; 99285; J7120; Q0162; G0479

== ENCOUNTER 2017-08-30 18:27 | Emergency (ER) | payer OTHER ==
[~2017-08-30] VITALS: Ht 160 cm; Wt 108.9 kg
[~2017-08-30 18:27] MED LIST changes: +DIVA500T2 PO; +SULF1TAB24 PO
--- NOTE | 2017-08-30 18:40 | PHYS DOC ---
General Chief Complaint: SEIZURE Stated Complaint: SEIZURES Time Seen by MD: 18:31 Source: patient, EMS Exam Limitations: no limitations Problems: History of Present Illness Initial Comments Patient is a 42-year-old female brought to the ED from the [facility] for breakthrough seizures. Patient takes 5 medications for seizures she just was released from skilled nursing and will be transferred to [facility] tomorrow where she is from. [facility] staff related to EMS that the patient had 5 grand mal seizure over a period of 40 minutes. Patient was brought to the emergency department on arrival vital signs are stable she is alert and oriented 3 denies any headache any pain or other injury. She says that she has to sign for her medications daily so it is documented that she's missed no doses, typically when she becomes ill she will have breakthrough seizures. She says that she's had a sore throat cough and sneezing for several days and strep and influenza have been running through the facility where she resides. She was brought by EMS and on arrival she denies any complaints. Timing/Duration: other Severity: moderate Modifying Factors: improves with medication Associated Symptoms: seizure, other Allergies: Coded Allergies: Penicillins (Verified Allergy, Intermediate, 08/30/17) morphine (Verified Allergy, Intermediate, Unknown, 08/30/17) Past Medical History Medical History: other (bipolar, depression, seizure disorder) Surgical History: noncontributory Social History Smoker: cigarettes Alcohol: none Drugs: none Review of Systems Constitutional: denies chills, denies diaphoresis, denies fever, denies malaise EENTM: denies eye pain, denies ear pain, denies nose pain, nose congestion, throat pain, denies throat swelling, denies mouth swelling Respiratory: cough, denies shortness of breath, denies wheezing Cardiovascular: denies chest pain, denies palpitations, denies syncope Gastrointestinal: denies abdominal pain, denies nausea, denies vomiting Musculoskeletal: denies back pain, denies joint swelling, denies neck pain Psychiatric/Neurological: see HPI Physical Exam General Appearance: no apparent distress, obese Eyes: bilateral eye normal inspection, bilateral eye PERRL, bilateral eye EOMI Ear, Nose, Throat: hearing grossly normal, normal ENT inspection, normal pharynx Neck: non-tender, supple Respiratory: normal breath sounds, no respiratory distress Cardiovascular: normal peripheral pulses, regular rate, rhythm Back: no CVA tenderness, no vertebral tenderness Extremities: normal range of motion, non-tender, normal inspection Neurologic/Psychiatric: design/animation instructor II-XII nml as tested, no motor/sensory deficits, alert, normal mood/affect, oriented x 3 Skin: normal color, warm/dry Orders, Labs, Meds Urine , rapid influenza, and rapid strep negative in the emergency department. EKG: Sinus rhythm normal axis no ST segment elevation interpreted by me. Phenytoin level 4.6, valproic acid 15 both are subtherapeutic Loading doses of phenytoin and valproic acid given in the emergency department. She is instructed to continue her current dosing with close follow-up neurology for further medication titration. Departure Time of Disposition: 21:04 Disposition: HOME, SELF-CARE Diagnosis: subtherapeutic Dilantin and valproic acid, seizure Condition: STABLE Patient Instructions: Seizure, Adult, [id number] Additional Instructions: Discharged home to the [facility]. Rest, no strenuous activity. [id number] Tylenol as needed for discomfort. Continue current medications. Follow-up with neurologist Friday for recheck symptoms and serum medication levels and to discuss titration of medications. Return to ED with new or changing symptoms. MEME AQUINO DO Aug 30, 2017 18:40
--- NOTE | 2017-08-30 18:45 | EKG ---
[address] [address] Test Date: 2017-08-30 Test Time: 18:42:56 Pat Name: ALDO HERNANDEZ Department: Room: Gender: F Process Control Specialist: ROMIE : 1975 Requested By: MEME AQUINO Order Number: [id number] Reading MD: Duglas Guallpa MD Measurements Intervals [place] Rate: 76 P: 49 WI: 152 QRS: 39 QRSD: 72 T: 24 QT: 370 QTc: 420 Interpretive Statements SINUS RHYTHM Electronically Signed On 09-05-2017 14:44:13 CONTINUOUS PILLOWCASE CUTTER by Duglas Guallpa MD
[2017-08-30 19:38] LABS: BASO % 1 % (0-3); EOS # 0.2 x10^3/uL (0.0-0.7); EOS % 3 % (0-3); HEMOGLOBIN 13.5 g/dL (12.0-15.5); LYMPH % 36 % (24-48); MEAN CORPUSCULAR HEMOGLOBIN 32 pg (25-35); MEAN CORPUSCULAR HGB CONC 35 g/dL (31-37); MEAN CORPUSCULAR VOLUME 94 fL (79-100); MONO # 0.5 x10^3/uL (0.0-1.1); MONO % 8 % (0-9); NEUT # 2.9 x10^3uL (1.8-7.7); NEUT % 52 % (31-73); PLATELET COUNT 278 x10^3/uL (140-400); RED BLOOD COUNT 4.17 x10^6/uL (3.50-5.40); RED CELL DISTRIBUTION WIDTH 13.1 % (11.5-14.5); WHITE BLOOD COUNT 5.6 x10^3/uL (4.0-11.0)
[2017-08-30 19:52] LABS: ANION GAP 5 (6-14); BARBITURATES NEG (NEG); BENZODIAZEPINES NEG (NEG); BLOOD UREA NITROGEN 4 mg/dL (7-20); CALCIUM 8.9 mg/dL (8.5-10.1); CANNABINOIDS NEG (NEG); CARBON DIOXIDE 32 mmol/L (21-32); CHLORIDE 106 mmol/L (98-107); COCAINE NEG (NEG); CREATININE 0.7 mg/dL (0.6-1.0); GFR 92.2; GLUCOSE 82 mg/dL (70-99); METHADONE NEG (NEG); OPIATES NEG (NEG); PHENCYCLIDINE NEG (NEG); PHENY 4.6 mcg/mL (10.0-20.0); POTASSIUM 3.5 mmol/L (3.5-5.1); SODIUM 143 mmol/L (136-145); VAL ACID 15 mcg/mL (50-100)
[2017-08-30 19:53] LABS: AMPHETAMINE/METHAMPHETAMINE NEG (NEG)
[2017-08-30 19:55] LABS: BILIRUBIN,URINE NEG (NEG); CLARITY,URINE CLEAR; COLOR,URINE STRAW; GLUCOSE,URINE NEG (NEG)
[2017-08-30 19:56] LABS: BACTERIA,URINE FEW /HPF (0-FEW); NITRITE,URINE NEG (NEG); RBC,URINE 0 /HPF (0-2); SQUAMOUS EPITHELIAL CELL,UR MOD /LPF; UROBILINOGEN,URINE 0.2 mg/dL (0.2 mg/dL); WBC,URINE OCC /HPF (0-4)
[2017-08-30 20:09] LABS: INFLUENZA A PATIENT NEGATIVE (NEGATIVE); INFLUENZA B PATIENT NEGATIVE (NEGATIVE)
[2017-08-30] MEDS ORDERED: PHENYTOIN SODIUM EXTENDED 100 MG CAPSULE PO ONE (20:45)
[2017-08-30] MEDS ORDERED: VALPROIC ACID 250 MG CAPSULE. PO ONE (21:00)
[2017-08-30] MEDS ORDERED: DIVALPROEX SODIUM 125 MG TABLET.DR. PO ONE ×2 (21:01→21:15)
[2017-08-30 21:25] VITALS: BP 135/70
== END 2017-08-30 21:30 | disposition home or self-care (01) ==
LOC: ER 18:27 → EEVIPCON 18:27 → ER 21:30
DX: G40.909 Epilepsy, unspecified, not intractable, without status epilepticus (principal); R79.1 Abnormal coagulation profile; F17.210 Nicotine dependence, cigarettes, uncomplicated; F31.9 Bipolar disorder, unspecified; Z88.0 Allergy status to penicillin; Z88.5 Allergy status to narcotic agent
CPT/HCPCS: 36415; 80048; 80164; 80185; 80307; 81001; 81025; 85025; 87070; 87804; 87880; 93005; 99285-25; G0479

== ENCOUNTER 2017-09-18 06:15 | Inpatient (IN) | payer OTHER ==
[~2017-09-18] VITALS: Ht 160 cm; Wt 116.6 kg
[2017-09-18 06:58] LABS: BASO # 0.1 x10^3/uL (0.0-0.2); BASO % 1 % (0-3); EOS # 0.2 x10^3/uL (0.0-0.7); EOS % 2 % (0-3); HEMATOCRIT 38.4 % (36.0-47.0); HEMOGLOBIN 13.5 g/dL (12.0-15.5); LYMPH # 2.7 x10^3/uL (1.0-4.8); LYMPH % 37 % (24-48); MEAN CORPUSCULAR HEMOGLOBIN 32 pg (25-35); MEAN CORPUSCULAR HGB CONC 35 g/dL (31-37); MEAN CORPUSCULAR VOLUME 92 fL (79-100); MONO # 0.6 x10^3/uL (0.0-1.1); MONO % 8 % (0-9); NEUT # 3.9 x10^3uL (1.8-7.7); NEUT % 52 % (31-73); PLATELET COUNT 307 x10^3/uL (140-400); RED BLOOD COUNT 4.18 x10^6/uL (3.50-5.40); RED CELL DISTRIBUTION WIDTH 13.2 % (11.5-14.5); WHITE BLOOD COUNT 7.5 x10^3/uL (4.0-11.0)
[2017-09-18] MEDS ORDERED: ACETAMINOPHEN 500 MG TABLET PO ONE (07:00)
[2017-09-18 07:11] LABS: CALCIUM 8.8 mg/dL (8.5-10.1); CREATININE 0.9 mg/dL (0.6-1.0); POTASSIUM 3.6 mmol/L (3.5-5.1)
[2017-09-18 07:15] LABS: PHENY 2.4 mcg/mL (10.0-20.0)
[2017-09-18 07:16] LABS: VAL ACID 25 mcg/mL (50-100)
[2017-09-18 07:48] LABS: BACTERIA,URINE FEW /HPF (0-FEW); BILIRUBIN,URINE NEG (NEG); CLARITY,URINE HAZY; COLOR,URINE YELLOW; GLUCOSE,URINE NEG (NEG); NITRITE,URINE NEG (NEG); SQUAMOUS EPITHELIAL CELL,UR FEW /LPF; UROBILINOGEN,URINE 0.2 mg/dL (0.2 mg/dL)
[2017-09-18 07:49] LABS: GRANULAR CASTS,URINE OCC /HPF; HYALINE CASTS, URINE OCC /HPF
[2017-09-18] MEDS ORDERED: VALPROIC ACID 250 MG CAPSULE. PO STA (08:41)
[2017-09-18] MEDS ORDERED: FOSPHENYTOIN 1,000 MG in IV NORMAL SALINE 50ML 50 ML IV ONE (08:45)
--- NOTE | 2017-09-18 08:50 | PHYS DOC ---
Past History Past Medical History: Seizure Past Surgical History: No Surgical History Alcohol Use: None Drug Use: None Adult General Chief Complaint Chief Complaint: SEIZURE HPI HPI Patient is a 42 year old F who presents with seizure just prior to arrival. Steff is had multiple seizures over the past year. She has a known seizure disorder. She was released from nursing home just under 1 year ago and currently resides at the [facility]. Her last seizure was 2 weeks ago. She was out of her medication for 10 days prior to 2 days ago when she restarted her medications. She is been unable to see a neurologist during this time despite multiple recommendations to do so. She is currently fatigued with mild nausea and headache. This is consistent with a postictal phase. She has no other associated symptoms at this time. She has no other exacerbating or alleviating factors this time Review of Systems Review of Systems Constitutional: Denies fever or chills [] Eyes: Denies change in visual acuity, redness, or eye pain [] HENT: Denies nasal congestion or sore throat [] Respiratory: Denies cough or shortness of breath [] Cardiovascular: No additional information not addressed in HPI [] GI: Denies abdominal pain, vomiting, bloody stools or diarrhea [] : Denies dysuria or hematuria [] Musculoskeletal: Denies back pain or joint pain [] Integument: Denies rash or skin lesions [] Neurologic: Denies focal weakness or sensory changes [] Endocrine: Denies polyuria or polydipsia [] All other systems were reviewed and found to be within normal limits, except as documented in this note. Family History Family History No pertinent family medical history reported Current Medications Current Medications Current Medications Medications (Trade) Dose Ordered Sig/Carol Start Time Stop Time Status Last Admin Dose Admin Acetaminophen (Tylenol) 1,000 mg 1X ONCE 09/18/17 07:00 09/18/17 07:02 DC 09/18/17 07:13 1,000 MG Fosphenytoin Sodium 1000 mg/ Sodium Chloride 70 ml @ 280 mls/hr 1X ONCE 09/18/17 08:45 09/18/17 08:59 Valproic Acid (Depakene) 1,000 mg 1X STAT 09/18/17 08:41 09/18/17 08:42 DC Allergies Allergies Allergies Coded Allergies Type Severity Reaction Last Updated Verified Penicillins Allergy Intermediate 08/30/17 Yes morphine Allergy Intermediate Unknown 08/30/17 Yes Physical Exam Physical Exam Constitutional: Well developed, well nourished, no acute distress, non-toxic appearance. [] HENT: Normocephalic, atraumatic, Eyes: PERRLA, EOMI, conjunctiva normal, no discharge. [] Neck: Normal range of motion, no tenderness, supple, no stridor. [] Cardiovascular:Heart rate regular rhythm Lungs & Thorax: Bilateral breath sounds clear to auscultation [] Abdomen: Bowel sounds normal, soft, no tenderness, no masses, no pulsatile masses. [] Skin: Warm, dry, no erythema, no rash. [] Back: No tenderness, no CVA tenderness. [] Extremities: No tenderness, no cyanosis, no clubbing, ROM intact, no edema. [] Neurologic: Alert and oriented X 3, normal motor function, normal sensory function, no focal deficits noted. [] Psychologic: Affect normal, judgement normal, mood normal. [] Current Patient Data Vital Signs Vital Signs Date Time Temp Pulse Resp B/P (MAP) Pulse Ox O2 Delivery O2 Flow Rate FiO2 09/18/17 07:44 75 18 117/82 (94) 09/18/17 06:45 98.8 97 Room Air Lab Results Laboratory Tests Test 09/18/17 06:41 White Blood Count 7.5 x10^3/uL (4.0-11.0) Red Blood Count 4.18 x10^6/uL (3.50-5.40) Hemoglobin 13.5 g/dL (12.0-15.5) Hematocrit 38.4 % (36.0-47.0) Mean Corpuscular Volume 92 fL (79-100) Mean Corpuscular Hemoglobin 32 pg (25-35) Mean Corpuscular Hemoglobin Concent 35 g/dL (31-37) Red Cell Distribution Width 13.2 % (11.5-14.5) Platelet Count 307 x10^3/uL (140-400) Neutrophils (%) (Auto) 52 % (31-73) Lymphocytes (%) (Auto) 37 % (24-48) Monocytes (%) (Auto) 8 % (0-9) Eosinophils (%) (Auto) 2 % (0-3) Basophils (%) (Auto) 1 % (0-3) Neutrophils # (Auto) 3.9 x10^3uL (1.8-7.7) Lymphocytes # (Auto) 2.7 x10^3/uL (1.0-4.8) Monocytes # (Auto) 0.6 x10^3/uL (0.0-1.1) Eosinophils # (Auto) 0.2 x10^3/uL (0.0-0.7) Basophils # (Auto) 0.1 x10^3/uL (0.0-0.2) Urine Collection Type Unknown Urine Color Yellow Urine Clarity Hazy Urine pH 5.5 Urine Specific [place] 1.025 Urine Protein Neg (NEG-TRACE) Urine Glucose (UA) Neg mg/dL (NEG) Urine Ketones (Stick) Trace mg/dL (NEG) Urine Blood Neg (NEG) Urine Nitrite Neg (NEG) Urine Bilirubin Neg (NEG) Urine Urobilinogen Dipstick 0.2 mg/dL (0.2 mg/dL) Urine Leukocyte Esterase Neg (NEG) Urine RBC 1-2 /HPF (0-2) Urine WBC 1-4 /HPF (0-4) Urine Squamous Epithelial Cells Few /LPF Urine Bacteria Few /HPF (0-FEW) Urine Hyaline Casts Occ /HPF Urine Granular Casts Occ /HPF Urine Mucus Slight /LPF Sodium Level 142 mmol/L (136-145) Potassium Level 3.6 mmol/L (3.5-5.1) Chloride Level 108 mmol/L (98-107) H Carbon Dioxide Level 25 mmol/L (21-32) Anion Gap 9 (6-14) Blood Urea Nitrogen 10 mg/dL (7-20) Creatinine 0.9 mg/dL (0.6-1.0) Estimated GFR (Cockcroft-Gault) 69.0 Glucose Level 89 mg/dL (70-99) Calcium Level 8.8 mg/dL (8.5-10.1) Phenytoin (Dilantin) Level 2.4 mcg/mL (10.0-20.0) L Phenytoin Last Dose Date 09/17/17 Phenytoin Last Dose Time 2100 Valproic Acid Level 25 mcg/mL (50-100) L Valproic Acid Last Dose Date 09/17/17 Valproic Acid Last Dose Time 2100 EKG EKG [] Radiology/Procedures Radiology/Procedures [] Course & Med Decision Making Course & Med Decision Making Pertinent Labs and Imaging studies reviewed. (See chart for details) Neurology was contacted by phone. Loading dose of fosphenytoin 1 g IV as well as valproic acid 1 g by mouth was recommended and was given in the emergency room. She is admitted thereafter for neurology consultation. Dragon Disclaimer Dragon Disclaimer This electronic medical record was generated, in whole or in part, using a voice recognition dictation system. Departure Departure: Impression: Primary Impression: Seizure Additional Impression: Subtherapeutic serum dilantin level Disposition: ADMITTED INPATIENT Condition: STABLE Referrals: LUIZ PLAZA MSN, CASE REPAIRER (PCP) Problem Qualifiers MAYA KOWALSKI MD Sep 18, 2017 08:50
[2017-09-18] MEDS ORDERED: IV NORMAL SALINE 50ML 50 ML ONE (08:54)
[2017-09-18] MEDS ORDERED: FOSPHENYTOIN 500 MG/10 ML VIAL IV ONE ×2 (08:55→09:06)
[2017-09-18] MEDS ORDERED: KETOROLAC 30 MG/ML VIAL. IV ONE (09:00)
[2017-09-18 09:58] VITALS: BP 146/83
[2017-09-18] MEDS ORDERED: LAMO25TA PO (11:05)
[2017-09-18] MEDS ORDERED: SERT100T PO (11:05)
[2017-09-18] MEDS ORDERED: LITH150C PO ×2 (11:05)
[2017-09-18] MEDS ORDERED: BUSP10TA PO (11:05)
[2017-09-18] MEDS ORDERED: ACETAMINOPHEN 325 MG TABLET PO PRN (12:30)
[2017-09-18 14:54] VITALS: BP 115/64
[2017-09-18] MEDS ORDERED: IBUPROFEN 600 MG TABLET. PO PRN (15:45)
[2017-09-18] MEDS: diphenhydrAMINE HCL 25 MG CAPSULE PO PRN ×2 (16:37→23:40)
[2017-09-18 19:37] VITALS: BP 117/69
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
[2017-09-18] MEDS ORDERED: levETIRAcetam 500 MG TABLET PO SCH (21:00)
[2017-09-18] MEDS ORDERED: LITHIUM CARBONATE 300 MG TABLET PO SCH (21:00)
[2017-09-18] MEDS ORDERED: PHENYTOIN SODIUM EXTENDED 100 MG CAPSULE PO SCH (21:00)
[2017-09-18] MEDS ORDERED: lamoTRIgine 25 MG TABLET. PO SCH (21:00)
[2017-09-18] MEDS ORDERED: SERTRALINE 100 MG TABLET. PO SCH (21:00)
[2017-09-18] MEDS ORDERED: DIVALPROEX ER 500 MG TAB.ER.24H PO SCH (21:00)
[2017-09-18] MEDS: busPIRone 10 MG TABLET. PO SCH (21:05)
[2017-09-18 23:41] VITALS: BP 127/88
[2017-09-19 05:32] VITALS: BP 150/81
[2017-09-19 06:31] LABS: BASO # 0.1 x10^3/uL (0.0-0.2); BASO % 1 % (0-3); EOS # 0.2 x10^3/uL (0.0-0.7); EOS % 3 % (0-3); HEMATOCRIT 38.5 % (36.0-47.0); HEMOGLOBIN 13.3 g/dL (12.0-15.5); LYMPH # 3.2 x10^3/uL (1.0-4.8); LYMPH % 48 % (24-48); MEAN CORPUSCULAR HEMOGLOBIN 32 pg (25-35); MEAN CORPUSCULAR HGB CONC 35 g/dL (31-37); MEAN CORPUSCULAR VOLUME 93 fL (79-100); MONO # 0.5 x10^3/uL (0.0-1.1); MONO % 8 % (0-9); NEUT # 2.7 x10^3uL (1.8-7.7); NEUT % 41 % (31-73); PLATELET COUNT 316 x10^3/uL (140-400); RED BLOOD COUNT 4.15 x10^6/uL (3.50-5.40); RED CELL DISTRIBUTION WIDTH 13.6 % (11.5-14.5); WHITE BLOOD COUNT 6.7 x10^3/uL (4.0-11.0)
[2017-09-19 06:41] LABS: CALCIUM 8.8 mg/dL (8.5-10.1); CREATININE 0.8 mg/dL (0.6-1.0)
[2017-09-19] MEDS ORDERED: FLU VACC QS2017-18 (36MOS+)/PF 0.5 ML SYRINGE. VAX IM ONE (09:00)
[2017-09-19] MEDS ORDERED: LITHIUM CARBONATE 150 MG CAPSULE. PO SCH (09:00)
[2017-09-19] MEDS: busPIRone 10 MG TABLET. PO SCH ×2 (09:46→14:13)
[2017-09-19 11:15] VITALS: BP 103/64
--- NOTE | 2017-09-19 11:35 | PDOC3 ---
Discharge Summary Visit Information Date of Admission: Sep 18, 2017 Date of Discharge: Sep 19, 2017 Final Diagnosis Problems Medical Problems: (1) Seizure Status: Acute (2) Subtherapeutic serum dilantin level Status: Acute ASSESSMENT: 1. Seizure disorder with recurrent seizures. 2. Subtherapeutic Dilantin level. 3. Subtherapeutic valproic acid level. 4. Right borderline personality disorder. 5. Panic disorder. 6. Anxiety. 7. Posttraumatic stress disorder. Problems: Brief Hospital Course Allergies Allergies Coded Allergies Type Severity Reaction Last Updated Verified Penicillins Allergy Intermediate 08/30/17 Yes morphine Allergy Intermediate Unknown 08/30/17 Yes Vital Signs Vital Signs Date Time Temp Pulse Resp B/P (MAP) Pulse Ox O2 Delivery O2 Flow Rate FiO2 09/19/17 11:15 98.6 72 18 103/64 (77) 96 09/19/17 08:00 Room Air Lab Results Laboratory Tests Test 09/18/17 06:41 09/19/17 05:49 White Blood Count 7.5 x10^3/uL (4.0-11.0) 6.7 x10^3/uL (4.0-11.0) Red Blood Count 4.18 x10^6/uL (3.50-5.40) 4.15 x10^6/uL (3.50-5.40) Hemoglobin 13.5 g/dL (12.0-15.5) 13.3 g/dL (12.0-15.5) Hematocrit 38.4 % (36.0-47.0) 38.5 % (36.0-47.0) Mean Corpuscular Volume 92 fL (79-100) 93 fL (79-100) Mean Corpuscular Hemoglobin 32 pg (25-35) 32 pg (25-35) Mean Corpuscular Hemoglobin Concent 35 g/dL (31-37) 35 g/dL (31-37) Red Cell Distribution Width 13.2 % (11.5-14.5) 13.6 % (11.5-14.5) Platelet Count 307 x10^3/uL (140-400) 316 x10^3/uL (140-400) Neutrophils (%) (Auto) 52 % (31-73) 41 % (31-73) Lymphocytes (%) (Auto) 37 % (24-48) 48 % (24-48) Monocytes (%) (Auto) 8 % (0-9) 8 % (0-9) Eosinophils (%) (Auto) 2 % (0-3) 3 % (0-3) Basophils (%) (Auto) 1 % (0-3) 1 % (0-3) Neutrophils # (Auto) 3.9 x10^3uL (1.8-7.7) 2.7 x10^3uL (1.8-7.7) Lymphocytes # (Auto) 2.7 x10^3/uL (1.0-4.8) 3.2 x10^3/uL (1.0-4.8) Monocytes # (Auto) 0.6 x10^3/uL (0.0-1.1) 0.5 x10^3/uL (0.0-1.1) Eosinophils # (Auto) 0.2 x10^3/uL (0.0-0.7) 0.2 x10^3/uL (0.0-0.7) Basophils # (Auto) 0.1 x10^3/uL (0.0-0.2) 0.1 x10^3/uL (0.0-0.2) Urine Collection Type Unknown Urine Color Yellow Urine Clarity Hazy Urine pH 5.5 Urine Specific [place] 1.025 Urine Protein Neg (NEG-TRACE) Urine Glucose (UA) Neg mg/dL (NEG) Urine Ketones (Stick) Trace mg/dL (NEG) Urine Blood Neg (NEG) Urine Nitrite Neg (NEG) Urine Bilirubin Neg (NEG) Urine Urobilinogen Dipstick 0.2 mg/dL (0.2 mg/dL) Urine Leukocyte Esterase Neg (NEG) Urine RBC 1-2 /HPF (0-2) Urine WBC 1-4 /HPF (0-4) Urine Squamous Epithelial Cells Few /LPF Urine Bacteria Few /HPF (0-FEW) Urine Hyaline Casts Occ /HPF Urine Granular Casts Occ /HPF Urine Mucus Slight /LPF Sodium Level 142 mmol/L (136-145) 142 mmol/L (136-145) Potassium Level 3.6 mmol/L (3.5-5.1) 4.0 mmol/L (3.5-5.1) Chloride Level 108 mmol/L (98-107) 108 mmol/L (98-107) Carbon Dioxide Level 25 mmol/L (21-32) 28 mmol/L (21-32) Anion Gap 9 (6-14) 6 (6-14) Blood Urea Nitrogen 10 mg/dL (7-20) 11 mg/dL (7-20) Creatinine 0.9 mg/dL (0.6-1.0) 0.8 mg/dL (0.6-1.0) Estimated GFR (Cockcroft-Gault) 69.0 79.0 Glucose Level 89 mg/dL (70-99) 98 mg/dL (70-99) Calcium Level 8.8 mg/dL (8.5-10.1) 8.8 mg/dL (8.5-10.1) Phenytoin (Dilantin) Level 2.4 mcg/mL (10.0-20.0) Phenytoin Last Dose Date 09/17/17 Phenytoin Last Dose Time 2100 Valproic Acid (Depakene) Level 25 mcg/mL (50-100) Valproic Acid Last Dose Date 09/17/17 Valproic Acid Last Dose Time 2100 Brief Hospital Course Ms. Domínguez is a 42 old [sex] who presented with RECURRENT SEIZURES AFTER BEING UNABLE TO GET HER MEDICATION AND BEING OUT OF IT FOR 10 DAYS. SHE HAD A SUBTHERAPEUTIC DILANTIN AND VALPROIC ACID LEVEL. SHE WAS SEEN BY DR. SIDDIQUI AND RECIEVED HER MEDICATIONS IN THE HOSPITAL. DID NOT HAVE ANY SEIZURES WHILE HOSPITALIZED. HER EEG WAS PENDING AT THE TIME OF DISCHARGE. ARRANGEMENTS HAVE BEEN MADE FOR HER TO RECIEVE A MONTH OF HER MEDICATIONS VIA A SUPPORT PROGRAM THROUGH [facility]. Discharge Information Condition at Discharge: Improved Disposition/Orders: D/C to Home Dischare Medications Current Medications Acetaminophen (Tylenol) 1,000 mg 1X ONCE PO Last administered on 09/18/17 07 :13; Start 09/18/17 at 07:00; Stop 09/18/17 at 07:02; Status DC Fosphenytoin Sodium 1000 mg/ Sodium Chloride 70 ml @ 280 mls/hr 1X ONCE IV Last administered on 09/18/17 09:04; Start 09/18/17 at 08:45; Stop 09/18/17 at 08:59; Status DC Valproic Acid (Depakene) 1,000 mg 1X STAT PO Last administered on 09/18/17 09:03; Start 09/18/17 at 08:41; Stop 09/18/17 at 08:42; Status DC Ketorolac Tromethamine (Toradol) 30 mg 1X ONCE IV Last administered on 09:04; Start 09/18/17 at 09:00; Stop 09/18/17 at 09:01; Status DC Sodium Chloride 50 ml @ As Directed STK-MED ONCE .ROUTE ; Start 09/18/17 at 08: 54; Stop 09/18/17 at 08:55; Status DC Fosphenytoin Sodium (Cerebyx) 500 mg STK-MED ONCE IV ; Start 09/18/17 at 08:55 ; Stop 09/18/17 at 08:56; Status DC Fosphenytoin Sodium (Cerebyx) 500 mg STK-MED ONCE IV ; Start 09/18/17 at 09:06 ; Stop 09/18/17 at 09:07; Status DC Acetaminophen (Tylenol) 650 mg PRN Q6HRS PRN PO PAIN / TEMP Last administered on 09/18/17 12:39; Start 09/18/17 at 12:30 Buspirone HCl (Buspar) 10 mg TID PO Last administered on 09/19/17 09:46; Start 09/18/17 at 21:00 Lamotrigine (LaMICtal) 50 mg HS PO Last administered on 09/18/17 21:38; Start 09/18/17 at 21:00 Phenytoin Sodium (Dilantin) 300 mg HS PO Last administered on 09/18/17 21:05 ; Start 09/18/17 at 21:00 Sertraline HCl (Zoloft) 200 mg QHS PO Last administered on 09/18/17 21:06; Start 09/18/17 at 21:00 Divalproex Sodium (Depakote Er) 500 mg QHS PO Last administered on 09/18/17 21:06; Start 09/18/17 at 21:00 Levetiracetam (Keppra) 1,000 mg QHS PO Last administered on 09/18/17 21:05; Start 09/18/17 at 21:00 [place] Carbonate 150 mg DAILY PO Last administered on 09/19/17 09:47; Start 09/19/17 at 09:00 [place] Carbonate 300 mg QHS PO Last administered on 09/18/17 21:39; Start 09/18/17 at 21:00 Diphenhydramine HCl (Benadryl) 50 mg PRN Q6HRS PRN PO ITCHING Last administered on 09/18/17 23:40; Start 09/18/17 at 16:15 Ibuprofen (Motrin) 600 mg PRN Q6HRS PRN PO INFLAMMATION; Start 09/18/17 at 15: 45 Influenza Virus Vaccine Quadrival (Fluarix Quad [id number] Syringe) 0.5 ml ONCE ONCE VAX IM ; Start 09/19/17 at 09:00; Stop 09/19/17 at 09:01; Status DC Active Scripts Active Keppra (Levetiracetam) 1,000 Mg Tablet 1,000 Mg PO HS Depakote (Divalproex Sodium) 500 Mg Tablet.dr 500 Mg PO HS Dilantin (Phenytoin Sodium Extended) 100 Mg Capsule 300 Mg PO HS 30 Days Reported Lamotrigine 25 Mg Tablet 2 Tab PO HS [place] Carbonate 150 Mg Capsule 2 Cap PO HS [place] Carbonate 150 Mg Capsule 1 Cap PO DAILY Buspirone Hcl 10 Mg Tablet 1 Tab PO TID Zoloft (Sertraline Hcl) 100 Mg Tablet 2 Tab PO HS Patient Instructions Patient Instuctions SEE INSTRUCTIONS ON JEREMY HILLS DO Sep 19, 2017 11:35
[2017-09-19] MEDS: diphenhydrAMINE HCL 25 MG CAPSULE PO PRN (14:13)
--- NOTE | 2017-09-20 01:46 | PN ---
DATE: SUBJECTIVE: The patient denies any recurrent seizure or any other medical or neurological complaints. OBJECTIVE: GENERAL: Obese female, not in acute distress. VITAL SIGNS: Blood pressure 150/81, respiratory rate 20, pulse is 87 and regular, temperature 98.3, and oxygen saturation 98% on room air. HEENT: Normocephalic, atraumatic, otherwise, unremarkable. NECK: Supple. Negative for carotid bruit, lymphadenopathy or thyromegaly. LUNGS: Clear to A and P. CARDIOVASCULAR: Regular rate and rhythm. Normal S1, S2. There is no S3, S4 or murmur. ABDOMEN: Soft. Bowel sounds positive. EXTREMITIES: Negative for cyanosis, clubbing or pitting edema. NEUROLOGICAL EXAM: Mental Status: The patient is alert and oriented x 3. Speech is fluent. There is no language dysfunction, otherwise, unremarkable. Cranial nerves are intact. No focal motor or sensory deficit. Deep tendon reflexes are symmetric and active without pathologic responses. Gait and coordination were normal. LABORATORY DATA: CBC revealed white blood cells of 6.7 thousand, hemoglobin 13.3, hematocrit 38.5, platelet count 316,000. Chemistry revealed sodium of 142, potassium 4, chloride 108, CO2 28, BUN 11, creatinine 0.8, glucose is 98 and calcium 8.8. IMPRESSION: 1. Breakthrough seizure, probably grand mal type seizure by history, which has been increased in frequency because the patient is not prescribed anticonvulsants. Her neurological examination is unremarkable. The patient has subtherapeutic level of phenytoin and Depakote on the day of admission. She was loaded with Depakote and phenytoin, and resumed taking her daily anticonvulsants. 2. Underlying psychiatric problems include depressions, anxiety, and possible personality disorder. RECOMMENDATIONS: 1. Continue with current management initiated by Dr. Page and anticonvulsant. 2. Await for EEG. M Mildred SIDDIQUI MD DR: RHONDA/lázaro JOB#: [id number] / [id number]
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
== END 2017-09-19 15:00 | disposition home or self-care (01) | DRG 101 ==
LOC: ER 06:15 → 1 SOUTH 09:06 → OBSVTOIN 12:31
PROVIDERS: ADMIT Family Medicine; ATTEND Family Medicine
DX: G40.409 Other generalized epilepsy and epileptic syndromes, not intractable, without status epilepticus (principal); F32.9 Major depressive disorder, single episode, unspecified; Z88.8 Allergy status to other drugs, medicaments and biological substances; F41.0 Panic disorder [episodic paroxysmal anxiety]; F43.10 Post-traumatic stress disorder, unspecified; F60.3 Borderline personality disorder; Z79.899 Other long term (current) drug therapy; Z81.8 Family history of other mental and behavioral disorders; Z88.0 Allergy status to penicillin
CPT/HCPCS: 36415; 80048; 80164; 80185; 81001; 85025; 87641; 90686; 95816; G0378; G0379; J1885; Q0163; Q2009; 99285-25

== ENCOUNTER 2017-10-16 09:14 | Emergency (ER) | payer OTHER ==
[~2017-10-16 09:14] MED LIST changes: +BUSP10TA PO; +LAMO25TA PO; +LITH150C PO; +SERT100T PO
[2017-10-16 10:27] LABS: INFLUENZA A PATIENT NEGATIVE (NEGATIVE); INFLUENZA B PATIENT NEGATIVE (NEGATIVE)
[2017-10-16] MEDS ORDERED: ONDANSETRON ODT 4 MG TAB.RAPDIS PO ONE (10:30)
[2017-10-16] MEDS ORDERED: IBUPROFEN 600 MG TABLET. PO ONE (10:30)
[2017-10-16] MEDS ORDERED: ACETAMINOPHEN 325 MG TABLET PO ONE (10:30)
[2017-10-16] MEDS ORDERED: ONDA4TAB10 SL (10:47)
[2017-10-16] MEDS ORDERED: IBUP600T16 PO (10:47)
--- NOTE | 2017-10-16 10:47 | PHYS DOC ---
Past History Past Medical History: Seizure Past Surgical History: No Surgical History Alcohol Use: None Drug Use: None Adult General Chief Complaint Chief Complaint: FLU SYMPTOM HPI HPI Patient is a 42-year-old female who presents to the ER today secondary to flulike symptoms for approximately 2 weeks. Patient reports that she is currently living in a retirement house with 11 other girls she thinks that she has been getting sick from them. Patient reports 2 weeks ago she had what she describes as a bad flu. Patient reports that she improved significantly and then recently she started getting sick again. Patient complains of cough congestion sore throat lesions in her mouth nausea and decreased by mouth intake. Patient complains of fevers. Patient denies any abdominal pain. Patient denies diarrhea. Patient denies dysuria frequency urgency. Review of Systems Review of Systems Review of systems: Constitutional: Positive for fevers Eyes: Denies change in visual acuity, redness, or eye pain HENT: Positive for nasal congestion and sore throat Respiratory: Positive for cough All other systems were reviewed and found to be within normal limits, except as documented in this note. Physical exam: Constitutional: Well developed, well nourished, no acute distress, non-toxic appearance. HENT: Normocephalic, atraumatic, bilateral external ears normal, nose normal. Small ulcerative lesion on her tongue Eyes: PERRLA, EOMI, conjunctiva normal, no discharge. Neck: Normal range of motion, no tenderness, supple, no stridor. Cardiovascular: Heart rate regular rhythm, Lungs & Thorax: Bilateral breath sounds clear to auscultation Abdomen: No abdominal distention. Skin: Warm, dry, no erythema, no rash. Back: Normal spinal curvature Extremities: No tenderness, no cyanosis, no clubbing, ROM intact, no edema. Neurologic: Alert and oriented X 3, normal motor function, normal sensory function, no focal deficits noted. Psychologic: Affect normal, judgement normal, mood normal. Patient's ER physical exam was most remarkable: Chest x-ray as interpreted by ER physician reveals: Normal heart no infiltrates or effusions Labs reviewed: Negative for influenza and strep Assessment and plan: 1. 42-year-old female who presents here today with viral type symptoms. Patient 's clinically hemodynamically stable. There is no evidence of bacterial infection. No evidence of meningitis. No evidence of abdominal pathology. Patient was given ibuprofen and Zofran here in the ED for her nausea. Patient be discharged home in stable condition ibuprofen and Zofran. Current Medications Current Medications Current Medications Medications (Trade) Dose Ordered Sig/Carol Start Time Stop Time Status Last Admin Dose Admin Acetaminophen (Tylenol) 650 mg 1X ONCE 10/16/17 10:30 10/16/17 10:31 DC 10/16/17 10:19 650 MG Ibuprofen (Motrin) 600 mg 1X ONCE 10/16/17 10:30 10/16/17 10:31 DC 10/16/17 10:19 600 MG Ondansetron HCl (Zofran Odt) 4 mg 1X ONCE 10/16/17 10:30 10/16/17 10:31 DC 10/16/17 10:19 4 MG Allergies Allergies Allergies Coded Allergies Type Severity Reaction Last Updated Verified Penicillins Allergy Intermediate 08/30/17 Yes morphine Allergy Intermediate Unknown 08/30/17 Yes Current Patient Data Lab Results Laboratory Tests Test 10/16/17 09:20 10/16/17 09:30 Group A Streptococcus Rapid Negative (NEGATIVE) Influenza Type A (Rapid) Negative (NEGATIVE) Influenza Type B (Rapid) Negative (NEGATIVE) EKG EKG [] Radiology/Procedures Radiology/Procedures [] Course & Med Decision Making Course & Med Decision Making Pertinent Labs and Imaging studies reviewed. (See chart for details) [] Dragon Disclaimer Dragon Disclaimer This electronic medical record was generated, in whole or in part, using a voice recognition dictation system. Departure Departure: Impression: Primary Impression: Viral illness Additional Impression: Viral respiratory illness Disposition: HOME, SELF-CARE Condition: IMPROVED Referrals: LUIZ PLAZA MSN, INDUSTRIAL THERAPIST (PCP) Patient Instructions: Viral Syndrome Scripts Ibuprofen (IBUPROFEN) 600 Mg Tablet 600 MG PO QID Y for PAIN, #20 Prov: ZAIRA CRUZ MD 10/16/17 Ondansetron (ZOFRAN ODT) 4 Mg Tab.rapdis 1 TAB SL Q8HRS for NAUSEA, #15 TAB Prov: ZAIRA CRUZ MD 10/16/17 Problem Qualifiers ZAIRA CRUZ MD Oct 16, 2017 10:47
[2017-10-16 10:57] VITALS: BP 129/58
--- NOTE | 2017-10-16 11:01 | RAD ---
Single view chest 10/16/2017 Clinical indication: Cough and flulike symptoms. Comparison: Chest 07/22/2017. Findings: Cardiac and mediastinal silhouettes are unremarkable. No pleural effusion, pneumothorax or focal consolidation. Calcified granulomas in the left mid and right lower lung levels. Impression: No acute cardiopulmonary abnormality.
== END 2017-10-16 10:57 | disposition home or self-care (01) ==
LOC: ER 09:14
DX: J06.9 Acute upper respiratory infection, unspecified (principal); B97.89 Other viral agents as the cause of diseases classified elsewhere; Z88.0 Allergy status to penicillin; Z88.5 Allergy status to narcotic agent
CPT/HCPCS: 71045; 87070; 87804; 87880; 99285; Q0162

== ENCOUNTER 2017-10-26 15:24 | Emergency (ER) | payer OTHER ==
[~2017-10-26] VITALS: Ht 160 cm; Wt 114.8 kg
[~2017-10-26 15:24] MED LIST changes: +IBUP600T16 PO; +ONDA4TAB10 SL
[2017-10-26 15:30] VITALS: BP 129/58
--- NOTE | 2017-10-26 15:43 | PHYS DOC ---
Past History Past Medical History: Seizure Past Surgical History: Cholecystectomy Alcohol Use: None Drug Use: None Adult General Chief Complaint Chief Complaint: SEIZURE HPI HPI 42-year-old female patient with history of seizure brought in by EMS because of seizure. Patient states she takes Lamictal, Dilantin, Depakote and Keppra and did not miss her medication. Patient states she had a in her family and was under stress for the last couple days. Patient had a grand mal seizure that lasted for about 2 or 3 minutes that reported by [facility] staff without loss of urine or bowel and biting tongue. Patient states she did not want to come to the hospital but retirement house make her to come to the hospital. Patient denies any focal neuro deficit, fever and chills, nausea and vomiting, headache, . Review of Systems Review of Systems Constitutional: Denies fever or chills [] Eyes: Denies change in visual acuity, redness, or eye pain [] HENT: Denies nasal congestion or sore throat [] Respiratory: Denies cough or shortness of breath [] Cardiovascular: No additional information not addressed in HPI [] GI: Denies abdominal pain, nausea, vomiting, bloody stools or diarrhea [] : Denies dysuria or hematuria [] Musculoskeletal: Denies back pain or joint pain [] Integument: Denies rash or skin lesions [] Neurologic: Denies headache, focal weakness or sensory changes [] Endocrine: Denies polyuria or polydipsia [] All other systems were reviewed and found to be within normal limits, except as documented in this note. Allergies Allergies Allergies Coded Allergies Type Severity Reaction Last Updated Verified Penicillins Allergy Intermediate 08/30/17 Yes morphine Allergy Intermediate Unknown 08/30/17 Yes Physical Exam Physical Exam Constitutional: Well developed, well nourished, mild distress, non-toxic appearance. [] HENT: Normocephalic, atraumatic, bilateral external ears normal, oropharynx moist, no oral exudates, nose normal. [] Eyes: PERRLA, EOMI, conjunctiva normal, no discharge. [] Neck: Normal range of motion, no tenderness, supple, no stridor. [] Cardiovascular:Heart rate regular rhythm, no murmur [] Lungs & Thorax: Bilateral breath sounds clear to auscultation [] Abdomen: Bowel sounds normal, soft, no tenderness, no masses, no pulsatile masses. [] Skin: Warm, dry, no erythema, no rash. [] Back: No tenderness, no CVA tenderness. [] Extremities: No tenderness, no cyanosis, no clubbing, ROM intact, no edema. [] Neurologic: Alert and oriented X 3, normal motor function, normal sensory function, no focal deficits noted. [] Psychologic: Affect normal, judgement normal, mood normal. [] EKG EKG [] Radiology/Procedures Radiology/Procedures [] Course & Med Decision Making Course & Med Decision Making Pertinent Labs reviewed. (See chart for details) Evaluation of patient in ER showed 42-year-old female patient with history of seizure brought in because of another episode of seizure. Patient had low level of Dilantin and Depakote and blood sugar of 55 and treated with oral Depakote and Dilantin and food and felt better. Patient instructed to follow with her primary care physician or neurologist in one day for adjustment of doses of her medication and continue her medication tonight and as instructed. [] Dragon Disclaimer Dragon Disclaimer This electronic medical record was generated, in whole or in part, using a voice recognition dictation system. Departure Departure: Impression: Primary Impression: Seizure Additional Impressions: Subtherapeutic serum dilantin level Hypoglycemia Disposition: 01 HOME, SELF-CARE (At 1800) Condition: IMPROVED Referrals: [facility], [employer] (PCP) Patient Instructions: Hypoglycemia (Low Blood Sugar), Seizure, Adult Additional Instructions: Drink plenty of liquids Follow-up with your primary care physician in 1-2 days for adjustment of dose of your seizure medication Return to ER if not getting better Problem Qualifiers SHAW MANN MD Oct 26, 2017 15:43
[2017-10-26 15:58] LABS: BASO # 0.1 x10^3/uL (0.0-0.2); BASO % 1 % (0-3); EOS # 0.2 x10^3/uL (0.0-0.7); EOS % 3 % (0-3); HEMATOCRIT 39.8 % (36.0-47.0); HEMOGLOBIN 13.6 g/dL (12.0-15.5); LYMPH # 2.1 x10^3/uL (1.0-4.8); LYMPH % 29 % (24-48); MEAN CORPUSCULAR HEMOGLOBIN 32 pg (25-35); MEAN CORPUSCULAR HGB CONC 34 g/dL (31-37); MEAN CORPUSCULAR VOLUME 94 fL (79-100); MONO # 0.6 x10^3/uL (0.0-1.1); MONO % 8 % (0-9); NEUT # 4.2 x10^3uL (1.8-7.7); NEUT % 58 % (31-73); PLATELET COUNT 284 x10^3/uL (140-400); RED BLOOD COUNT 4.23 x10^6/uL (3.50-5.40); RED CELL DISTRIBUTION WIDTH 13.2 % (11.5-14.5); WHITE BLOOD COUNT 7.2 x10^3/uL (4.0-11.0)
[2017-10-26 16:48] LABS: BARBITURATES NEG (NEG); BENZODIAZEPINES NEG (NEG); CANNABINOIDS NEG (NEG); COCAINE NEG (NEG); METHADONE NEG (NEG); OPIATES NEG (NEG); PHENCYCLIDINE NEG (NEG)
[2017-10-26 16:50] LABS: BACTERIA,URINE 0 /HPF (0-FEW); BILIRUBIN,URINE NEG (NEG); CLARITY,URINE CLEAR; COLOR,URINE YELLOW; GLUCOSE,URINE NEG (NEG); NITRITE,URINE NEG (NEG); RBC,URINE 0 /HPF (0-2); SQUAMOUS EPITHELIAL CELL,UR OCC /LPF; UROBILINOGEN,URINE 0.2 mg/dL (0.2 mg/dL); WBC,URINE OCC /HPF (0-4)
[2017-10-26 16:50] LABS: ALBUMIN 3.7 g/dL (3.4-5.0); ALK PHOS 82 U/L (46-116); ALT (SGPT) 27 U/L (14-59); ANION GAP 10 (6-14); AST (SGOT) 19 U/L (15-37); BLOOD UREA NITROGEN 6 mg/dL (7-20); BUN/CREATININE RATIO 8 (6-20); CALCIUM 9.3 mg/dL (8.5-10.1); CARBON DIOXIDE 28 mmol/L (21-32); CHLORIDE 106 mmol/L (98-107); CREATININE 0.8 mg/dL (0.6-1.0); GLUCOSE 55 mg/dL (70-99); PHENY 4.2 mcg/mL (10.0-20.0); POTASSIUM 3.7 mmol/L (3.5-5.1); SODIUM 144 mmol/L (136-145); TOTAL BILIRUBIN 0.1 mg/dL (0.2-1.0); TOTAL PROTEIN 7.3 g/dL (6.4-8.2)
[2017-10-26 16:51] LABS: AMPHETAMINE/METHAMPHETAMINE NEG (NEG)
[2017-10-26 16:52] LABS: VAL ACID 21 mcg/mL (50-100)
[2017-10-26] MEDS ORDERED: VALPROIC ACID 250 MG CAPSULE. PO STA (17:30)
[2017-10-26] MEDS ORDERED: PHENYTOIN SODIUM EXTENDED 100 MG CAPSULE PO ONE (17:30)
[2017-10-26 18:20] LABS: U PREG PATIENT NEGATIVE (NEG)
== END 2017-10-26 18:10 | disposition home or self-care (01) ==
LOC: ER 15:24
DX: G40.89 Other seizures (principal); E16.2 Hypoglycemia, unspecified; R79.1 Abnormal coagulation profile; Z88.0 Allergy status to penicillin; Z88.5 Allergy status to narcotic agent
CPT/HCPCS: 36415; 80053; 80164; 80185; 80307; 81001; 81025; 85025; 99284; G0479

== ENCOUNTER 2017-11-02 20:08 | Emergency (ER) | payer OTHER ==
[~2017-11-02] VITALS: Ht 160 cm; Wt 119.3 kg
[~2017-11-02 20:08] MED LIST changes: -SERT100T PO; +SERT20OR PO
[2017-11-02] MEDS ORDERED: IV NORMAL SALINE 1,000ML 1,000 ML IV ONE ×2 (20:30→21:00)
[2017-11-02 22:02] LABS: CALCIUM 9.1 mg/dL (8.5-10.1); CREATININE 0.8 mg/dL (0.6-1.0); POTASSIUM 3.1 mmol/L (3.5-5.1)
--- NOTE | 2017-11-02 22:34 | PHYS DOC ---
Past History Past Medical History: Seizure Past Surgical History: Cholecystectomy Alcohol Use: None Drug Use: None Adult General Chief Complaint Chief Complaint: SEIZURE HPI HPI 42-year-old female with a history of psychiatric issues and seizure disorder compliant with her Keppra and Dilantin now presents the emergency department after an alleged seizure. Patient alert and communicative with no postictal state upon arrival in the ED. She does have a clearly identifiable contributory component of anxiety. No recent illness or other complaints. Patient states she is under a lot of stress because she lives in a care home Review of Systems Review of Systems Constitutional: Denies fever or chills [] Eyes: Denies change in visual acuity, redness, or eye pain [] HENT: Denies nasal congestion or sore throat [] Respiratory: Denies cough or shortness of breath [] Cardiovascular: No additional information not addressed in HPI [] GI: Denies abdominal pain, nausea, vomiting, bloody stools or diarrhea [] : Denies dysuria or hematuria [] Musculoskeletal: Denies back pain or joint pain [] Integument: Denies rash or skin lesions [] Neurologic: Denies headache, focal weakness or sensory changes [] Endocrine: Denies polyuria or polydipsia [] All other systems were reviewed and found to be within normal limits, except as documented in this note. Current Medications Current Medications Current Medications Medications (Trade) Dose Ordered Sig/Carol Start Time Stop Time Status Last Admin Dose Admin Potassium Chloride (Klor-Con) 40 meq 1X ONCE 11/02/17 22:30 11/02/17 22:31 UNV Sodium Chloride 1,000 ml @ 1,000 mls/hr 1X ONCE 11/02/17 21:00 11/02/17 21:59 DC 11/02/17 21:30 1,000 MLS/HR Allergies Allergies Allergies Coded Allergies Type Severity Reaction Last Updated Verified Penicillins Allergy Intermediate 08/30/17 Yes morphine Allergy Intermediate Unknown 08/30/17 Yes Physical Exam Physical Exam Mildly anxious 42-year-old female. sHe is alert communicative no acute distress. Supple neck clear lungs regular rate and rhythm benign abdomen normal extremities and a nonfocal neurologic exam including extended cranial nerves Constitutional: Well developed, well nourished, no acute distress, non-toxic appearance. [] HENT: Normocephalic, atraumatic, bilateral external ears normal, oropharynx moist, no oral exudates, nose normal. [] Eyes: PERRLA, EOMI, conjunctiva normal, no discharge. [] Neck: Normal range of motion, no tenderness, supple, no stridor. [] Cardiovascular:Heart rate regular rhythm, no murmur [] Lungs & Thorax: Bilateral breath sounds clear to auscultation [] Abdomen: Bowel sounds normal, soft, no tenderness, no masses, no pulsatile masses. [] Skin: Warm, dry, no erythema, no rash. [] Back: No tenderness, no CVA tenderness. [] Extremities: No tenderness, no cyanosis, no clubbing, ROM intact, no edema. [] Neurologic: Alert and oriented X 3, normal motor function, normal sensory function, no focal deficits noted. [] Psychologic: Anxious affect, judgement normal, confrontational mood Current Patient Data Lab Results Laboratory Tests Test 11/02/17 21:25 Sodium Level 140 mmol/L (136-145) Potassium Level 3.1 mmol/L (3.5-5.1) L Chloride Level 103 mmol/L (98-107) Carbon Dioxide Level 28 mmol/L (21-32) Anion Gap 9 (6-14) Blood Urea Nitrogen 5 mg/dL (7-20) L Creatinine 0.8 mg/dL (0.6-1.0) Estimated GFR (Cockcroft-Gault) 79.0 Glucose Level 95 mg/dL (70-99) Calcium Level 9.1 mg/dL (8.5-10.1) EKG EKG [] Radiology/Procedures Radiology/Procedures [] Course & Med Decision Making Course & Med Decision Making Pertinent Labs and Imaging studies reviewed. (See chart for details) Patient with a known history of seizure disorder now status post possible seizure. If the patient did have a seizure this is unremarkable for her. She has no postictal state on arrival in the ED and no seizure during her emergency department care. Patient was hydrated. Basic metabolic panel done with mild hypokalemia at 3.1 supplemented with a single dose of potassium. No further workup or treatment indicated. Patient has Keppra and Dilantin with which she is compliant. Patient agrees with outpatient follow-up. She's awere to follow up with her primary care doctor tomorrow and return immediately for new severe worsening symptoms [] Dragon Disclaimer Dragon Disclaimer This electronic medical record was generated, in whole or in part, using a voice recognition dictation system. Departure Departure: Impression: Primary Impression: Seizure Disposition: 01 HOME, SELF-CARE Condition: GOOD Referrals: [facility], [employer] (PCP) Patient Instructions: Seizure, Adult Additional Instructions: It appears by your description that you may have had a seizure before coming to the hospital. You been stable in the emergency department anywhere hydrated with a liter of normal saline. Your potassium was mildly low at 3.1. Take potassium as prescribed for 5 days. Continue your Keppra and Dilantin as previously prescribed and follow-up with your doctor in the morning. Return immediately for new severe worsening symptoms MAXWELL PERLA MD Nov 02, 2017 22:34
[2017-11-02] MEDS ORDERED: POTASSIUM CHLORIDE 20 MEQ TABLET.ER. PO ONE ×2 (22:45)
[2017-11-02 22:52] VITALS: BP 116/37
== END 2017-11-02 22:52 | disposition home or self-care (01) ==
LOC: ER 20:08
DX: G40.909 Epilepsy, unspecified, not intractable, without status epilepticus (principal); Z88.0 Allergy status to penicillin; Z88.5 Allergy status to narcotic agent
CPT/HCPCS: 36415; 80048; 96360; 99284-25; J7030

== ENCOUNTER 2018-12-22 20:41 | Emergency (ER) | payer OTHER ==
[~2018-12-22] VITALS: Ht 157.5 cm; Wt 99.8 kg
[~2018-12-22 20:41] MED LIST changes: -LAMO25TA PO; +LAMO25TA9 PO; +SERT100T PO; -SERT20OR PO
--- NOTE | 2018-12-22 21:33 | PHYS DOC ---
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 This started yesterday. Patient has recently been exposed to her daughter who has influenza. No blood in stool or emesis. Patient recently checked into a longterm house. Multiple sick people there with coughing issues.[] Review of Systems Review of Systems Constitutional: See history of present illness[] Eyes: Denies change in visual acuity, redness, or eye pain [] HENT: Denies nasal congestion or sore throat [] Respiratory: Denies cough or shortness of breath [] Cardiovascular: Chest pain or palpitations[] GI: See history of present illness[] : Denies dysuria or hematuria [] Musculoskeletal: Denies back pain or joint pain [] Integument: Denies rash or skin lesions [] Neurologic: Denies headache, focal weakness or sensory changes [] Endocrine: Denies polyuria or polydipsia [] All other systems were reviewed and found to be within normal limits, except as documented in this note. Current Medications Current Medications Current Medications Medications (Trade) Dose Ordered Sig/Carol Start Time Stop Time Status Last Admin Dose Admin Ondansetron HCl (Zofran) 8 mg 1X ONCE 12/22/18 22:00 12/22/18 22:01 Sodium Chloride 1,000 ml @ 1,000 mls/hr 1X ONCE 12/22/18 22:00 12/22/18 22:59 Allergies Allergies Allergies Coded Allergies Type Severity Reaction Last Updated Verified Penicillins Allergy Intermediate 08/30/17 Yes morphine Allergy Intermediate Unknown 08/30/17 Yes Physical Exam Physical Exam Constitutional: Well developed, well nourished, no acute distress, non-toxic appearance. [] HENT: Normocephalic, atraumatic, bilateral external ears normal, oropharynx moist, no oral exudates, nose normal. [] Eyes: PERRLA, EOMI, conjunctiva normal, no discharge. [] Neck: Normal range of motion, no tenderness, supple, no stridor. [] Cardiovascular:Heart rate regular rhythm, no murmur [] Lungs & Thorax: Bilateral breath sounds clear to auscultation [] Abdomen: Bowel sounds normal, soft, no tenderness, no masses, no pulsatile masses. [] Skin: Warm, dry, no erythema, no rash. [] Back: No tenderness, no CVA tenderness. [] Extremities: No tenderness, no cyanosis, no clubbing, ROM intact, no edema. [] Neurologic: Alert and oriented X 3, normal motor function, normal sensory function, no focal deficits noted. [] Psychologic: Affect normal, judgement normal, mood normal. [] EKG EKG [] Radiology/Procedures Radiology/Procedures [] Course & Med Decision Making Course & Med Decision Making Pertinent Labs and Imaging studies reviewed. (See chart for details) ED course: Patient arrived, was placed in bed, and started having some vomiting during the history and physical exam. She was given Zofran which transiently improved her nausea and vomiting and subsequently Compazine was administered which controlled her nausea and vomiting. She was given IV fluids and reported feeling much better after the 2 medicines. After the return of the laboratory studies, these were discussed with the patient who voiced understanding. All questions were answered. Medical decision making: Patient does not appear to have intractable nausea and vomiting, no evidence of significant electrolyte abnormality, patient is negative for flu however given her symptomatology and recent exposure to somebody with a confirmed case of influenza, will cover her with Tamiflu.[] Dragon Disclaimer Dragomar Disclaimer This electronic medical record was generated, in whole or in part, using a voice recognition dictation system. Departure Departure: Impression: Primary Impression: Influenza-like illness Additional Impression: Nausea and vomiting Disposition: 01 HOME, SELF-CARE Condition: IMPROVED Referrals: [facility], [facility] (PCP) Follow-up in 2 days Patient Instructions: Influenza, Adult, Nausea and Vomiting Additional Instructions: Your Dilantin level was undetectable. If you're still taking this medication, discuss with your primary care physician or neurologist adjustments to your dosage.Drink plenty of fluids, frequent small sips. No fatty foods, no milk, and no pepper for the next 48 hours. For the next 48 hours eat a diet rich in carbohydrates with foods such as bananas, rice, applesauce, and toast. Follow- up with your regular doctor in 2 days. Return to the ER if unable to tolerate liquids or any other concerns. Scripts Oseltamivir Phosphate (TAMIFLU) 75 Mg Capsule 1 CAP PO BID for influenza exposure, #10 CAP Prov: SANTOS MÁRQUEZ DO 12/22/18 Prochlorperazine Maleate (Compazine) 10 Mg Tablet 10 MG PO QIDPRN PRN for NAUSEA/VOMITING, #30 TAB Prov: SANTOS MÁRQUEZ DO 12/22/18 Problem Qualifiers Additional Impression: Nausea and vomiting Vomiting type: unspecified Vomiting Intractability: non-intractable Qualified Codes: R11.2 - Nausea with vomiting, unspecified SANTOS MÁRQUEZ DO Dec 22, 2018 21:33
[2018-12-22] MEDS ORDERED: IV NORMAL SALINE 1,000ML 1,000 ML IV ONE (22:00)
[2018-12-22] MEDS ORDERED: ONDANSETRON PF 4 MG/2 ML VIAL. IV ONE (22:00)
[2018-12-22] MEDS ORDERED: PROCHLORPERAZINE 10 MG/2 ML VIAL. IV ONE (22:15)
[2018-12-22 22:23] LABS: BASO # 0.1 x10^3/uL (0.0-0.2); BASO % 1 % (0-3); EOS # 0.1 x10^3/uL (0.0-0.7); EOS % 2 % (0-3); HEMATOCRIT 44.6 % (36.0-47.0); HEMOGLOBIN 14.9 g/dL (12.0-15.5); LYMPH # 1.8 x10^3/uL (1.0-4.8); LYMPH % 23 % (24-48); MEAN CORPUSCULAR HEMOGLOBIN 30 pg (25-35); MEAN CORPUSCULAR HGB CONC 33 g/dL (31-37); MEAN CORPUSCULAR VOLUME 91 fL (79-100); MONO # 0.6 x10^3/uL (0.0-1.1); MONO % 7 % (0-9); NEUT # 5.3 x10^3uL (1.8-7.7); NEUT % 67 % (31-73); PLATELET COUNT 361 x10^3/uL (140-400); RED BLOOD COUNT 4.91 x10^6/uL (3.50-5.40); RED CELL DISTRIBUTION WIDTH 13.1 % (11.5-14.5); WHITE BLOOD COUNT 7.9 x10^3/uL (4.0-11.0)
[2018-12-22 22:32] LABS: ALBUMIN 3.9 g/dL (3.4-5.0); ALK PHOS 77 U/L (46-116); ALT (SGPT) 25 U/L (14-59); ANION GAP 11 (6-14); AST (SGOT) 20 U/L (15-37); BLOOD UREA NITROGEN 12 mg/dL (7-20); BUN/CREATININE RATIO 15 (6-20); CALCIUM 9.5 mg/dL (8.5-10.1); CARBON DIOXIDE 26 mmol/L (21-32); CHLORIDE 104 mmol/L (98-107); CREATININE 0.8 mg/dL (0.6-1.0); GFR 78.7; GLUCOSE 93 mg/dL (70-99); LIPASE 119 U/L (73-393); POTASSIUM 3.5 mmol/L (3.5-5.1); SODIUM 141 mmol/L (136-145); TOTAL BILIRUBIN 0.4 mg/dL (0.2-1.0)
[2018-12-22 22:36] LABS: INFLUENZA A PATIENT NEGATIVE (NEGATIVE); INFLUENZA B PATIENT NEGATIVE (NEGATIVE)
[2018-12-22 22:38] LABS: PHENY < 0.5 mcg/mL (10.0-20.0)
[2018-12-22 22:49] LABS: BILIRUBIN,URINE NEG (NEG); CLARITY,URINE HAZY; COLOR,URINE YELLOW; GLUCOSE,URINE NEG (NEG); NITRITE,URINE NEG (NEG); UROBILINOGEN,URINE 0.2 mg/dL (0.2 mg/dL)
[2018-12-22 22:50] LABS: BACTERIA,URINE MOD /HPF (0-FEW); RBC,URINE 0 /HPF (0-2); SQUAMOUS EPITHELIAL CELL,UR OCC /LPF
[2018-12-22 23:02] LABS: U PREG PATIENT NEGATIVE (NEG)
[2018-12-22] MEDS ORDERED: OSEL75CA PO (23:18)
[2018-12-22] MEDS ORDERED: PROC10TA57 PO (23:18)
[2018-12-22 23:31] VITALS: BP 127/91
== END 2018-12-22 23:35 | disposition home or self-care (01) ==
LOC: ER 20:41
DX: J11.1 Influenza due to unidentified influenza virus with other respiratory manifestations (principal); R11.2 Nausea with vomiting, unspecified; Z88.0 Allergy status to penicillin; Z88.5 Allergy status to narcotic agent
CPT/HCPCS: 36415; 80053; 80185; 81001; 81025; 83690; 85025; 87070; 87086; 87804; 87880; 96361; 96374; 96375; 99283; J0780; J2405; J7030

== ENCOUNTER 2019-01-31 17:48 | Emergency (ER) | payer OTHER ==
[~2019-01-31] VITALS: Ht 157.5 cm; Wt 114.8 kg
[~2019-01-31 17:48] MED LIST changes: +OSEL75CA PO; +PROC10TA57 PO
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
[2019-01-31] MEDS ORDERED: IV RINGERS SOLUTION,LACTATED 1,000 ML IV SCH (17:53)
--- NOTE | 2019-01-31 17:59 | EKG ---
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
[2019-01-31] MEDS ORDERED: LORazepam 1 MG TABLET PO ONE (18:00)
[2019-01-31] MEDS ORDERED: ONDANSETRON PF 4 MG/2 ML VIAL. IV ONE (18:00)
[2019-01-31 18:20] LABS: BASO % 0 % (0-3); EOS # 0.1 x10^3/uL (0.0-0.7); EOS % 1 % (0-3); HEMATOCRIT 40.8 % (36.0-47.0); HEMOGLOBIN 13.9 g/dL (12.0-15.5); LYMPH # 2.7 x10^3/uL (1.0-4.8); LYMPH % 31 % (24-48); MEAN CORPUSCULAR HEMOGLOBIN 31 pg (25-35); MEAN CORPUSCULAR HGB CONC 34 g/dL (31-37); MEAN CORPUSCULAR VOLUME 90 fL (79-100); MONO # 0.7 x10^3/uL (0.0-1.1); MONO % 8 % (0-9); NEUT # 5.1 x10^3uL (1.8-7.7); NEUT % 59 % (31-73); PLATELET COUNT 306 x10^3/uL (140-400); RED BLOOD COUNT 4.53 x10^6/uL (3.50-5.40); RED CELL DISTRIBUTION WIDTH 13.1 % (11.5-14.5); WHITE BLOOD COUNT 8.6 x10^3/uL (4.0-11.0)
[2019-01-31] MEDS ORDERED: DIVALPROEX SODIUM 125 MG TABLET.DR. PO ONE (18:30)
[2019-01-31 18:41] LABS: PHENY < 0.5 mcg/mL (10.0-20.0); VAL ACID 4 mcg/mL (50-100)
[2019-01-31 18:45] LABS: ALBUMIN 3.4 g/dL (3.4-5.0); ALK PHOS 75 U/L (46-116); ALT (SGPT) 23 U/L (14-59); AMYLASE 53 U/L (25-115); ANION GAP 7 (6-14); AST (SGOT) 16 U/L (15-37); BLOOD UREA NITROGEN 17 mg/dL (7-20); CALCIUM 9.6 mg/dL (8.5-10.1); CARBON DIOXIDE 28 mmol/L (21-32); CHLORIDE 105 mmol/L (98-107); CREATININE 0.9 mg/dL (0.6-1.0); DIRECT BILIRUBIN < 0.1 mg/dL (0.0-0.2); GFR 68.7; GLUCOSE 81 mg/dL (70-99); LIPASE 143 U/L (73-393); MAGNESIUM 1.9 mg/dL (1.8-2.4); SODIUM 140 mmol/L (136-145); TOTAL BILIRUBIN 0.2 mg/dL (0.2-1.0); TOTAL PROTEIN 7.4 g/dL (6.4-8.2)
--- NOTE | 2019-01-31 18:45 | RAD ---
CT HEAD WO CONTRAST Indication: Seizure. Exposure: One or more of the following individualized dose reduction techniques were utilized for this examination: 1. Automated exposure control 2. Adjustment of the mA and/or kV according to patient size 3. Use of iterative reconstruction technique. Technique: Standard imaging without intravenous contrast. Comparison with 08/06/2017. The posterior fossa is unremarkable. No evidence of acute intracranial hemorrhage, mass effect, Midline shift or abnormal extra-axial fluid collection. Streeter-white matter distinction is maintained. Ventricles and sulci are symmetric. No notable scalp swelling. No acute skull abnormality. Partially visualized sinuses are clear. IMPRESSION: No evidence of acute intracranial hemorrhage or mass effect. Consider outpatient MRI for further evaluation. Electronically signed by: lCaudy Orozco MD (01/31/2019 6:42 PM) [facility]
[2019-01-31 18:53] LABS: BARBITURATES NEG (NEG); BENZODIAZEPINES NEG (NEG); CANNABINOIDS NEG (NEG); COCAINE NEG (NEG); METHADONE NEG (NEG); OPIATES NEG (NEG); PHENCYCLIDINE NEG (NEG)
[2019-01-31 18:54] LABS: AMPHETAMINE/METHAMPHETAMINE NEG (NEG)
[2019-01-31 19:10] LABS: BILIRUBIN,URINE NEG (NEG); CLARITY,URINE CLEAR; COLOR,URINE YELLOW; GLUCOSE,URINE NEG (NEG)
[2019-01-31 19:11] LABS: BACTERIA,URINE 0 /HPF (0-FEW); NITRITE,URINE NEG (NEG); RBC,URINE OCC /HPF (0-2); SQUAMOUS EPITHELIAL CELL,UR MOD /LPF; UROBILINOGEN,URINE 0.2 mg/dL (0.2 mg/dL); WBC,URINE RARE /HPF (0-4)
[2019-01-31] MEDS ORDERED: levETIRAcetam 500 MG TABLET PO STA (19:18)
[2019-01-31] MEDS ORDERED: PHENYTOIN SODIUM EXTENDED 100 MG CAPSULE PO ONE (19:30)
[2019-01-31 19:32] LABS: SEDIMENTATION RATE 17 (0-25)
[2019-01-31 19:45] VITALS: BP 107/63
--- NOTE | 2019-01-31 19:58 | RAD ---
CHEST PA LATERAL History: Seizure.. Heart size is not enlarged. No evidence of pneumothorax. No pleural effusion. No consolidating infiltrate. Bones appear intact. IMPRESSION: No evidence of consolidating infiltrate. Electronically signed by: Claudy Orozco MD (01/31/2019 7:55 PM) [facility]
[2019-02-01] MEDS ORDERED: BUTA1TAB23 PO (22:56)
[2019-02-01] MEDS ORDERED: ONDA4TAB12 PO (22:56)
== END 2019-01-31 20:07 | disposition home or self-care (01) ==
LOC: ER 17:48
DX: S62.501A Fracture of unspecified phalanx of right thumb, initial encounter for closed fracture (principal); G40.89 Other seizures; R11.2 Nausea with vomiting, unspecified; F41.9 Anxiety disorder, unspecified; F32.9 Major depressive disorder, single episode, unspecified; G43.909 Migraine, unspecified, not intractable, without status migrainosus; R89.2 Abnormal level of other drugs, medicaments and biological substances in specimens from other organs, systems and tissues; Z88.0 Allergy status to penicillin; Z88.5 Allergy status to narcotic agent; X58.XXXA Exposure to other specified factors, initial encounter; Y93.89 Activity, other specified; Y92.89 Other specified places as the place of occurrence of the external cause; Y99.0 Civilian activity done for income or pay
CPT/HCPCS: 36415; 70450; 71046; 80048; 80076; 80164; 80178; 80185; 80307; 81001; 81025; 82150; 82550; 83690; 83735; 83880; 84443; 84484; 85025; 85379; 85610; 85651; 85730; 93005; 96361; 96374; 99285; G0480; J2405; J7120; 80177

== ENCOUNTER 2019-02-01 21:26 | Emergency (ER) | payer OTHER ==
[~2019-02-01] VITALS: Ht 157.5 cm; Wt 114.8 kg
[2019-02-01 21:43] VITALS: BP 111/64
[2019-02-01] MEDS ORDERED: METOCLOPRAMIDE HCL 10 MG/2 ML VIAL. IV ONE (21:45)
[2019-02-01] MEDS ORDERED: KETOROLAC 15 MG/ML VIAL. IV ONE (21:45)
[2019-02-01] MEDS ORDERED: IV NORMAL SALINE 1,000ML 1,000 ML IV ONE (21:45)
[2019-02-01] MEDS ORDERED: diphenhydrAMINE 50 MG/ML VIAL IVP ONE (21:45)
[2019-02-01] MEDS ORDERED: DEXAMETHASONE SOD PHOS 10 MG/ML VIAL IV ONE (21:45)
[2019-02-01] MEDS ORDERED: BUTA1TAB23 PO (22:56)
[2019-02-01] MEDS ORDERED: ONDA4TAB12 PO (22:56)
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
== END 2019-02-01 23:00 | disposition home or self-care (01) ==
LOC: ER 21:30
DX: R51 Headache (principal); R11.2 Nausea with vomiting, unspecified; R10.9 Unspecified abdominal pain; G43.909 Migraine, unspecified, not intractable, without status migrainosus; Z90.49 Acquired absence of other specified parts of digestive tract; Z88.0 Allergy status to penicillin; Z88.5 Allergy status to narcotic agent
CPT/HCPCS: 96361; 96374; 96375; 99284; J1100; J1200; J1885; J2765; J7030

== ENCOUNTER 2021-11-03 21:30 | Emergency (ER) | payer SELFPAY ==
[~2021-11-03] VITALS: Ht 157.5 cm; Wt 118.1 kg
[~2021-11-03 21:30] MED LIST changes: +BUTA1TAB23 PO; +ONDA4TAB12 PO
--- NOTE | 2021-11-03 21:34 | PHYS DOC ---
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 States spouse was exposed to COVID little over a week ago. States she is not vaccinated for COVID. Denies any fevers, chest pain, shortness of breath, nausea, vomiting, diarrhea. Denies any dysuria, hematuria. States he is eating and drinking normally for her. States he is making urine and stool normally for her. States she took some Tylenol earlier in the day. Review of Systems Review of Systems Review of systems otherwise unremarkable except noted in HPI Allergies Allergies Allergies Coded Allergies Type Severity Reaction Last Updated Verified Penicillins Allergy Intermediate 08/30/17 Yes morphine Allergy Intermediate Unknown 08/30/17 Yes Physical Exam Physical Exam Constitutional: Well developed, well nourished, no acute distress, non-toxic appearance. [] HENT: Normocephalic, atraumatic, oropharynx moist, no oral exudates, nose normal. [] Eyes:conjunctiva normal, no discharge. [] Neck: Normal range of motion, no tenderness, supple, no stridor. [] Cardiovascular:Heart rate regular rhythm, no murmur [] Lungs & Thorax: Bilateral breath sounds clear to auscultation [] Abdomen: no tenderness, Skin: Warm, dry, no erythema, no rash. [] Extremities: No tenderness, no cyanosis, no clubbing, ROM intact, no edema. [] Neurologic: Alert and oriented X 3, no focal deficits noted. [] Psychologic: Affect normal, judgement normal, mood normal. [] EKG EKG [] Radiology/Procedures Radiology/Procedures [] Heart Score C/O Chest Pain: No Risk Factors: Risk Factors: DM, Current or recent (<one month) smoker, HTN, HLP, family history of CAD, obesity. Risk Scores: Risk Factors: DM, Current or recent (<one month) smoker, HTN, HLP, family history of CAD, obesity. Course & Med Decision Making Course & Med Decision Making Patient is a 46-year-old female presents with body aches, chills and fatigue Vital signs not concerning. Physical exam noted above. Given Tylenol, ibuprofen and Benadryl COVID swab pending. Discussed symptom treatment at home. Given community resource packet with local [facility] clinics and advised to follow-up on Friday. Discussed COVID quarantine and education. Gave return precautions to the ED. Patient grateful, verbalized understanding and agreed with plan of discharge. [] Dragon Disclaimer Dragon Disclaimer This electronic medical record was generated, in whole or in part, using a voice recognition dictation system. Departure Departure: Impression: Primary Impression: Viral syndrome Disposition: HOME / SELF CARE / HOMELESS Condition: GOOD Referrals: PCP,PHILIPP (PCP) ROSSY CUELLAR Patient Instructions: Viral Syndrome Additional Instructions: You have been tested for or diagnosed with COVID-19. It is an infection caused by a new type of coronavirus. COVID-19 will cause cold-like or mild flu symptoms in most. It can cause more severe symptoms like problems breathing in some. There is no treatment for COVID-19. The body will clear the infection over time. Self-care will help to ease discomfort. Steps to Take: Self-Care Rest as needed. Healthy habits may help you feel better. Steps include: Choose healthy foods including fruits and vegetables. Drink water throughout the day. Get plenty of sleep each night. If you smoke, try to quit. It may ease breathing. Avoid alcohol. Keep Others Healthy The virus can spread to others. Droplets are released every time you sneeze or cough. The droplets can get into the mouth, nose, or eyes of people near you and lead to infection. To lower the chances of spreading COVID-19 to others: Stay at home until your doctor has said it is safe to leave. If you tested positive this will mean staying isolated until both of the following are true: At least 7 days have passed since the start of illness. You are free of fever for at least 72 hours without the use of medicine. These guidelines change frequently and the best way to ensure you are following them is go to CDC website on Covid guidelines During this time: - Avoid public areas, events, or transportation. Do not return to work or school until your doctor has said it is safe to do so. - Call ahead if you need to go to a medical center. Let them know you may have COVID-19. It will help them guide you where to go. They may also ask you to wear a facemask when you come to the office. - If you call for emergency medical services, let them know you may have COVID- 19. While at home: - Try to avoid close contact with others. Stay about 6 feet away. - If possible, spend most of your time in a separate room from others. - Use a face mask if you will be in close contact with others such as sharing a room or vehicle. - Have someone wipe down common surfaces in the home. Use household bearing machine operator every day on areas like doorknobs, counters, or sinks. - Cough or sneeze into a tissue. Throw the tissue away right after use. If a tissue is not available, cough or sneeze into your elbow. - Wash your hands often. Wash them after sneezing or coughing. Use soap and water and wash for at least 20 seconds. Alcohol based hand guide rail cleaner can be used if soap and water is not available. - Do not prepare food for others. Avoid sharing personal items like forks, spoons, or toothbrushes. - Avoid close contact with pets while you are sick. There is no evidence of the virus passing to pets. This is a safety step until more is known about this virus. Isolation can be frustrating. Social interaction can help. Keep in touch with friends and family through phone and tech options. You can still interact with others in your home, just keep a safe distance of about 6 feet. Follow-up: Your doctors office will check in with you to see if there are any changes in your health. You may be asked to keep track of symptoms to share with them. They will also let you know when you are clear to be in public again. Problems to Look Out For: Contact your doctor if your recovery is not going as you expect. Get emergency care if you have problems such as: - Trouble breathing - Nonstop chest pain or pressure - Changes in awareness, confusion, or problems waking - Lips or face have bluish color - Worsening of symptoms If you think you have an emergency, call for emergency medical services right away. As taken from [facility] CONROY MD Nov 03, 2021 21:34
[2021-11-03 21:40] VITALS: BP 144/85
[2021-11-03] MEDS ORDERED: KETOROLAC 30 MG/ML VIAL. ONE (21:49)
[2021-11-03] MEDS ORDERED: ACETAMINOPHEN 500 MG TABLET PO ONE (22:30)
[2021-11-03] MEDS ORDERED: KETOROLAC 30 MG/ML VIAL. IM ONE (22:30)
[2021-11-03] MEDS ORDERED: diphenhydrAMINE HCL 25 MG CAPSULE PO ONE (22:30)
== END 2021-11-03 22:05 | disposition home or self-care (01) ==
LOC: ER 21:30
DX: B34.9 Viral infection, unspecified (principal); Z20.822 Contact with and (suspected) exposure to COVID-19; Z88.0 Allergy status to penicillin; Z88.6 Allergy status to analgesic agent; Z90.49 Acquired absence of other specified parts of digestive tract
CPT/HCPCS: 96372; 99283; C9803; J1885; Q0163; U0003